=== PATIENT | female | born 1965 | race Caucasian/White ===

== ENCOUNTER 2017-02-22 18:19 | Emergency (ER) | payer SELFPAY ==
[~2017-02-22 18:19] MED LIST: ALBU8.5H6 IH; ALPR0.5T PO; ALPR0.5T6 PO; AMLO5TAB2 PO; ARIP10TA9 PO; AZIT250T PO; CITA20TA5 PO; DIPH1TAB PO; FAMO20TA5 PO; HYDR-971 PO; HYDR28GE TP; IBUP200T43 PO; IPRA4AER IH; LISI-334 PO; LISI40TA PO; MAGN400T3 PO; MIRT15TA3 PO; MOME17SP NS; MULT-246 PO; POTA20TA4 PO; PRAZ1CAP2 PO; PRED-220 PO; SILV20CR14 TP; SODI30SP NS; SULF1TAB24 PO
[2017-02-22 18:22] VITALS: BP 136/74
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
[2017-02-22] MEDS ORDERED: KETOROLAC 30 MG/ML VIAL. IM ONE (19:30)
== END 2017-02-22 19:02 | disposition left against medical advice (07) ==
LOC: ER 18:19
DX: R10.9 Unspecified abdominal pain (principal); R11.2 Nausea with vomiting, unspecified; K43.9 Ventral hernia without obstruction or gangrene; I10 Essential (primary) hypertension; F10.20 Alcohol dependence, uncomplicated; F17.210 Nicotine dependence, cigarettes, uncomplicated; F12.10 Cannabis abuse, uncomplicated; Z90.81 Acquired absence of spleen; Z86.19 Personal history of other infectious and parasitic diseases; Z91.041 Radiographic dye allergy status; Z88.0 Allergy status to penicillin
CPT/HCPCS: 99281; 99284

== ENCOUNTER → 2017-06-16 | Outpatient (CLI) | payer OTHER ==
--- NOTE | 2017-06-17 07:36 | RAD ---
Chest, 2 views, 06/16/2017: History: COPD, chronic cough Comparison is made to a study from 11/10/2016. The heart size and pulmonary vascularity are normal. No pulmonary infiltrates are seen. There is no evidence of pleural fluid. There is evidence of an old shoulder separation on the right. IMPRESSION: No acute cardiopulmonary abnormality is detected.
== END | disposition home or self-care (01) ==
LOC: RAD 16:55
PROVIDERS: ATTEND Nurse Practitioner
DX: J44.9 Chronic obstructive pulmonary disease, unspecified (principal); R05 Cough
CPT/HCPCS: 71020

== ENCOUNTER 2017-08-14 22:56 | Emergency (ER) | payer OTHER ==
[~2017-08-14] VITALS: Ht 157.5 cm; Wt 67.1 kg
[~2017-08-14 22:56] MED LIST changes: -IBUP200T43 PO; +IBUP200T44 PO
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
[2017-08-14] MEDS ORDERED: MVI, ADULT NO.4 WITH VIT K 10 ML, FOLIC ACID 1 MG, THIAMINE 100 MG in IV NORMAL SALINE ... IV ONE ×4 (23:45)
[2017-08-14] MEDS ORDERED: methylPREDNISolone SOD SUCC PF 125 MG/2 ML VIAL. IV ONE (23:45)
[2017-08-14] MEDS ORDERED: IPRATRPIUM/ALBUTEROL 0.5/2.5MG 3 ML NEBU. NEB ONE (23:45)
[2017-08-14] MEDS ORDERED: THIAMINE 200 MG/2 ML VIAL. IV ONE (23:51)
[2017-08-14] MEDS ORDERED: MVI, ADULT NO.4 WITH VIT K 10 ML VIAL IV ONE (23:52)
[2017-08-14] MEDS ORDERED: FOLIC ACID 5 MG/ML SYRINGE for ER IV ONE (23:53)
[2017-08-14 23:58] LABS: BASO # 0.6 x10^3/uL (0.0-0.2); BASO % 5 % (0-3); EOS # 0.3 x10^3/uL (0.0-0.7); EOS % 2 % (0-3); HEMATOCRIT 35.9 % (36.0-47.0); HEMOGLOBIN 12.5 g/dL (12.0-15.5); LYMPH # 4.5 x10^3/uL (1.0-4.8); LYMPH % 32 % (24-48); MEAN CORPUSCULAR HEMOGLOBIN 34 pg (25-35); MEAN CORPUSCULAR HGB CONC 35 g/dL (31-37); MEAN CORPUSCULAR VOLUME 98 fL (79-100); MONO # 0.9 x10^3/uL (0.0-1.1); MONO % 7 % (0-9); NEUT # 7.8 x10^3uL (1.8-7.7); NEUT % 55 % (31-73); PLATELET COUNT 370 x10^3/uL (140-400); RED BLOOD COUNT 3.67 x10^6/uL (3.50-5.40); RED CELL DISTRIBUTION WIDTH 14.7 % (11.5-14.5); WHITE BLOOD COUNT 14.2 x10^3/uL (4.0-11.0)
[2017-08-15] MEDS ORDERED: ONDANSETRON ODT 4 MG TAB.RAPDIS PO ONE
[2017-08-15] MEDS ORDERED: HYDROcodone/APAP 7.5/325MG 1 TAB TABLET PO ONE
[2017-08-15 00:18] LABS: ALBUMIN 3.6 g/dL (3.4-5.0); ALBUMIN/GLOBULIN RATIO 0.8 (1.0-1.7); CALCIUM 8.4 mg/dL (8.5-10.1); CREATININE 1.6 mg/dL (0.6-1.0); GFR 33.7; MAGNESIUM 1.3 mg/dL (1.8-2.4); POTASSIUM 4.2 mmol/L (3.5-5.1); TOTAL BILIRUBIN 0.1 mg/dL (0.2-1.0); TOTAL PROTEIN 8.4 g/dL (6.4-8.2)
[2017-08-15 00:28] LABS: BILIRUBIN,URINE NEG (NEG); CLARITY,URINE HAZY; COLOR,URINE YELLOW; GLUCOSE,URINE NEG (NEG)
[2017-08-15 00:29] LABS: BACTERIA,URINE MANY /HPF (0-FEW); NITRITE,URINE NEG (NEG); RBC,URINE OCC /HPF (0-2); SQUAMOUS EPITHELIAL CELL,UR FEW /LPF; UROBILINOGEN,URINE 0.2 mg/dL (0.2 mg/dL); WBC,URINE >40 /HPF (0-4)
[2017-08-15 00:34] LABS: BARBITURATES NEG (NEG); BENZODIAZEPINES NEG (NEG); CANNABINOIDS NEG (NEG); COCAINE NEG (NEG); METHADONE NEG (NEG); OPIATES NEG (NEG); PHENCYCLIDINE NEG (NEG)
[2017-08-15 00:40] LABS: AMPHETAMINE/METHAMPHETAMINE NEG (NEG)
--- NOTE | 2017-08-15 00:47 | RAD ---
INDICATION: Trauma with head, face and neck pain COMPARISON: None. TECHNIQUE: Axial CT images obtained through the head, face and cervical spine. One or more of the following individualized dose reduction techniques were utilized for this examination: 1. Automated exposure control; 2. Adjustment of the mA and/or kV according to patient size; 3. Use of iterative reconstruction technique. FINDINGS: Head: No midline shift. Suprasellar cistern is not effaced. Scattered foci of low-attenuation within the white matter. No definite acute intracranial hemorrhage. Cervical spine: Mild grade 1 anterolisthesis of C2 on 3 and C4 on 5. Mild retrolisthesis of C5 on 6 and C6 on 7. Degenerative changes with osteophyte formation at vertebral body endplates as well as uncovertebral and facet hypertrophy. No definite cervical spine fracture. There are some cystic changes at the lung apices. Causes such as emphysema in the differential but only partially seen. Facial: There is a displaced left mandibular fracture identified just anterior to the mandibular angle with the fracture extending to the posterior aspect of the patient's posterior most molar. There is air within the adjacent soft tissues. There is angulation of the left zygomatic arch as well. There is some angulation of the nasal bone. Nasal septal deviation to left. IMPRESSION: No definite acute intracranial hemorrhage. No definite cervical spine fracture. There is evidence of facial fractures including a displaced fracture of the left mandible. There is also angulation of the left zygomatic arch and nasal bone. Would correlate with pain in these regions as well since if there is pain and could be from additional fracture sites. Nasal septal deviation to the left. Degenerative changes of cervical spine. Scattered foci of low-attenuation white matter. Nonspecific but can be seen with chronic small vessel ischemic disease. Electronically signed by: Rolando Hyatt MD (08/15/2017 12:44 AM) [facility]
[2017-08-15 01:17] LABS: INFLUENZA A PATIENT NEGATIVE (NEGATIVE); INFLUENZA B PATIENT NEGATIVE (NEGATIVE)
[2017-08-15] MEDS ORDERED: IV NORMAL SALINE 1,000ML 1,000 ML IV SCH (01:42)
[2017-08-15] MEDS ORDERED: CLINDAMYCIN 900MG PREMIX 50 ML IV ONE (01:45)
[2017-08-15 02:05] VITALS: BP 112/75
--- NOTE | 2017-08-15 05:51 | EKG ---
[address] [address] Test Date: 2017-08-14 Test Time: 23:54:30 Pat Name: JASON ESPARZA Department: Room: Gender: F Medical Clerk: SHERWIN : 1965 Requested By: CARLA SRIVASTAVA Order Number: [id number] Reading MD: Kashif Dutton Measurements Intervals [place] Rate: 91 P: -75 [place]: 136 QRS: 18 QRSD: 68 T: 38 QT: 348 QTc: 430 Interpretive Statements SINUS RHYTHM NORMAL ECG Electronically Signed On 08-19-2017 16:26:09 LOAN SERVICING REPRESENTATIVE by Kashif Dutton
--- NOTE | 2017-08-15 07:57 | RAD ---
PROCEDURE: CHEST PA LATERAL CLINICAL INDICATION: Shortness of breath COMPARISON: 06/16/2017 FINDINGS: No pneumothorax identified. Cardiac and mediastinal contours unremarkable. No pulmonary consolidation or acute airspace disease. No acute osseous abnormalities identified. IMPRESSION: No pulmonary consolidation or acute airspace disease.
== END 2017-08-15 02:34 | disposition short-term general hospital (02) ==
LOC: ER 22:56
DX: F10.129 Alcohol abuse with intoxication, unspecified (principal); S02.69XB Fracture of mandible of other specified site, initial encounter for open fracture; S02.40FA Zygomatic fracture, left side, initial encounter for closed fracture; N28.9 Disorder of kidney and ureter, unspecified; E83.42 Hypomagnesemia; K70.9 Alcoholic liver disease, unspecified; N39.0 Urinary tract infection, site not specified; F14.10 Cocaine abuse, uncomplicated; F12.10 Cannabis abuse, uncomplicated; F11.10 Opioid abuse, uncomplicated; F31.9 Bipolar disorder, unspecified; J44.9 Chronic obstructive pulmonary disease, unspecified; I10 Essential (primary) hypertension; Z86.19 Personal history of other infectious and parasitic diseases; Z90.81 Acquired absence of spleen; Z88.0 Allergy status to penicillin; Z91.041 Radiographic dye allergy status; S02.2XXA Fracture of nasal bones, initial encounter for closed fracture; Y08.89XA Assault by other specified means, initial encounter; Y93.41 Activity, dancing; Y99.8 Other external cause status; Y92.098 Other place in other non-institutional residence as the place of occurrence of the external cause
CPT/HCPCS: 36415; 70450; 70486; 71046; 72125; 80053; 80307; 81001; 83735; 83880; 84484; 85025; 87086; 87186; 87804; 93005; 96365; 96375; 99291; G0480; J1956; J2930; J3490; Q0162; G0479; J7030

== ENCOUNTER 2017-10-03 22:02 | Emergency (ER) | payer SELFPAY ==
[~2017-10-03] VITALS: Ht 157.5 cm; Wt 67.1 kg
[2017-10-03] MEDS: IV NORMAL SALINE 1,000ML 1,000 ML IV SCH ×2 (22:15→22:55)
[2017-10-03 23:00] LABS: BASO % 1 % (0-3); EOS % 0 % (0-3); LYMPH # 0.3 x10^3/uL (1.0-4.8); LYMPH % 6 % (24-48); MEAN CORPUSCULAR HEMOGLOBIN 33 pg (25-35); MEAN CORPUSCULAR HGB CONC 32 g/dL (31-37); MEAN CORPUSCULAR VOLUME 103 fL (79-100); MONO # 0.3 x10^3/uL (0.0-1.1); MONO % 6 % (0-9); NEUT # 4.5 x10^3uL (1.8-7.7); NEUT % 88 % (31-73); PLATELET COUNT 160 x10^3/uL (140-400); RED BLOOD COUNT 1.51 x10^6/uL (3.50-5.40); RED CELL DISTRIBUTION WIDTH 14.8 % (11.5-14.5); WHITE BLOOD COUNT 5.1 x10^3/uL (4.0-11.0)
[2017-10-03] MEDS ORDERED: IPRATRPIUM/ALBUTEROL 0.5/2.5MG 3 ML NEBU. NEB ONE (23:00)
[2017-10-03 23:04] LABS: HEMATOCRIT 15.6 % (36.0-47.0)
[2017-10-03 23:09] LABS: ANION GAP 12 (6-14); BLOOD UREA NITROGEN 16 mg/dL (7-20); CARBON DIOXIDE 12 mmol/L (21-32); CHLORIDE 122 mmol/L (98-107); CREATININE 1.1 mg/dL (0.6-1.0); GLUCOSE 74 mg/dL (70-99); SODIUM 146 mmol/L (136-145)
[2017-10-03 23:15] LABS: CALCIUM < 5.0 mg/dL (8.5-10.1)
[2017-10-03 23:16] LABS: POTASSIUM 2.2 mmol/L (3.5-5.1)
--- NOTE | 2017-10-03 23:19 | PHYS DOC ---
General Chief Complaint: PAIN CONTROL Stated Complaint: JAW PAIN Time Seen by MD: 22:05 Source: patient, EMS, old records Exam Limitations: no limitations Problems: History of Present Illness Initial Comments 52-year-old female brought to the ED by EMS complaining of postoperative pain. Patient was seen at this emergency department August 14 diagnosed with an open mandibular fracture and transferred to [facility] for trauma evaluation. Patient states that she underwent surgery on that day and has since developed an infection in the plate used for repair. States that 2 days ago she underwent a revision in which the plate was changed out. She states that she was discharged home yesterday. Patient reports her surgeon at is Dr. Jack Johnson. Patient states that today she's had increased swelling and pain at her left jaw and into her neck. She's been overall tired and states that despite her severe pain "I have no trouble sleeping." ED vitals on arrival: 97.5, 84, 87/30, 20, 87% on room air improved to 95% on 2 L nasal cannula Timing/Duration: other Severity: severe Modifying Factors: worse with movement, improves with rest Associated Symptoms: loss of appetite, malaise, weakness, other Allergies: Coded Allergies: Penicillins (Verified Allergy, Intermediate, Rash, 09/21/16) I S O L A T I O N *CONTACT* (Verified Allergy, Unknown, 11/11/16) +MRSA screen 11-10-16 Past Medical History Medical History: other ( hardly stay awake long enough and I believe her about how much bleeding that she's had no bipolar disorder, COPD, hepatitis C, polysubstance abuse, alcoholism, anxiety, depression, ectopic , hypertension) Surgical History: other (left jaw ORIF and revision, oophorectomy, splenectomy , tonsillectomy, tracheostomy) Social History Smoker: non-smoker Alcohol: heavy Drugs: cocaine, marijuana, other (opiates) Review of Systems Constitutional: denies chills, denies diaphoresis, denies fever, malaise, weakness Respiratory: denies cough, denies shortness of breath, denies wheezing Cardiovascular: denies chest pain, denies palpitations, denies syncope Gastrointestinal: denies abdominal pain, denies nausea, denies vomiting Musculoskeletal: see HPI, denies back pain Psychiatric/Neurological: see HPI, denies numbness, denies paresthesia Hematologic/Lymphatic: see HPI Physical Exam General Appearance: no apparent distress (lethargic and somnolent) Ear, Nose, Throat: hearing grossly normal, other (markedly left facial swelling extending into the neck with trismus) Respiratory: normal breath sounds, no respiratory distress Cardiovascular: normal peripheral pulses, regular rate, rhythm Extremities: non-tender, normal inspection Neurologic/Psychiatric: 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 Critical labs called, hemoglobin 5, potassium 2.2, calcium less than 5. Hemodynamic instability noted, to continue further dilution with normal saline will continue to drop the potassium. Levophed drip initiated with oral and intravenous potassium replacement. Patient is a blood transfusion, also needs urgent transferred to for evaluation by the surgery team to determine if there is no active bleed. Blood bank not initiated here as transfer anticipated to take place prior to preparation of blood products. 2336: I placed multiple calls to , I am repeatedly told that they're busy and cannot take my call at this time. I expressed the urgency of the matter. 0001: Blood pressure improved to 136/79 with Levophed drip at 2 mics. O2 sat is increased to 97% heart rate 85. Some drainage noted coming from the incision and a culture has been obtained. Impressions: Postop day #2 left jaw ORIF revision Severe anemia hemoglobin 5 Severe hypokalemia potassium 2.2 Respiratory Distress Hypovolemia Hypotension Departure Time of Disposition: 00:02 Disposition: 02 XFER SHT-TRM HOSP Condition: IMPROVED JESSICA SRIVASTAVA DO Oct 03, 2017 23:19
[2017-10-03] MEDS ORDERED: NOREPINEPHRINE BITARTRATE 8 MG in IV NORMAL SALINE 250ML 250 ML IV PRN (23:30)
[2017-10-03] MEDS ORDERED: IV NORMAL SALINE 250ML 250 ML ONE (23:32)
[2017-10-03] MEDS ORDERED: NOREPINEPHRINE BITARTRATE 4 MG/4 ML VIAL. IV ONE (23:33)
[2017-10-03] MEDS ORDERED: POTASSIUM CHLORIDE 40 MEQ in IV NORMAL SALINE 1,000ML 1,000 ML IV SCH (23:45)
[2017-10-03] MEDS ORDERED: POTASSIUM CHLORIDE 20 MEQ/15 ML ORAL LIQUID. PO ONE (23:45)
[2017-10-04 00:04] VITALS: BP 103/49
[2017-10-04] MEDS ORDERED: POTASSIUM CL 40MEQ IN 0.9%NACL 1,000 ML IV ONE (00:30)
[2017-10-04 00:39] LABS: BARBITURATES NEG (NEG); BENZODIAZEPINES NEG (NEG); CANNABINOIDS NEG (NEG); COCAINE NEG (NEG); METHADONE NEG (NEG); OPIATES POS (NEG); PHENCYCLIDINE NEG (NEG)
[2017-10-04 00:41] LABS: AMPHETAMINE/METHAMPHETAMINE NEG (NEG)
[2017-10-04] MEDS ORDERED: [UNRECOGNIZED DRUG - OTHER] IV ONE (01:50)
[2017-10-04] MEDS ORDERED: POTASSIUM CL IV ONE (01:50)
== END 2017-10-04 01:18 | disposition short-term general hospital (02) ==
LOC: ER 22:02
DX: G89.18 Other acute postprocedural pain (principal); R68.84 Jaw pain; D64.9 Anemia, unspecified; E87.6 Hypokalemia; E86.1 Hypovolemia; R06.03 Acute respiratory distress; F12.10 Cannabis abuse, uncomplicated; F14.10 Cocaine abuse, uncomplicated; F11.10 Opioid abuse, uncomplicated; J44.9 Chronic obstructive pulmonary disease, unspecified; I10 Essential (primary) hypertension; F41.9 Anxiety disorder, unspecified; F32.9 Major depressive disorder, single episode, unspecified; F10.20 Alcohol dependence, uncomplicated; Z98.890 Other specified postprocedural states; Z91.041 Radiographic dye allergy status; Z88.0 Allergy status to penicillin
CPT/HCPCS: 36415; 80048; 80307; 85025; 87070; 96361; 96365; 96366; 96368; 99285; G0480; J7050; G0479; J7030

== ENCOUNTER 2017-11-07 11:37 | Emergency (ER) | payer SELFPAY ==
[~2017-11-07] VITALS: Ht 157.5 cm; Wt 62.1 kg
--- NOTE | 2017-11-07 11:51 | PHYS DOC ---
Past History Past Medical History: Alcoholism, Anxiety, Depression, Ectopic , Hypertension Past Surgical History: Oophorectomy, Spleenectomy, Tonsillectomy Smoking: Less than 1pk/day, Cigar Alcohol Use: Heavy Drug Use: Marijuana Adult General Chief Complaint Chief Complaint: NEAR SYCOPE HPI HPI Patient is a 52 year old female who presents with nausea vomiting, epigastric pain and near syncopal episode. She states she started drinking again in a pint last her about 3 days. She has been having liquid stools the last 3-4 days and nausea vomiting. She continues to drink alcohol. She does plan of epigastric pain. He doesn't radiate. She was seen at [facility] today because the symptoms and when she stood up after they tried to get blood she had a near syncopal episode. She did hit her head when she had her syncopal episode. She thinks she did consciousness. She does not complain of a headache or neck pain. She states over the last 3-4 day she's been having black stools and approximate 45 a day of them. Review of Systems Review of Systems Constitutional: Denies fever or chills [] Eyes: Denies change in visual acuity, redness, or eye pain [] HENT: Denies nasal congestion or sore throat [] Respiratory: Denies cough or shortness of breath [] Cardiovascular: No additional information not addressed in HPI [] GI: Positive for abdominal pain, nausea, vomiting, and diarrhea, Denies bloody stools : Denies dysuria or hematuria [] Musculoskeletal: Denies back pain or joint pain [] Integument: Denies rash or skin lesions [] Neurologic: Denies headache, focal weakness or sensory changes [] Endocrine: Denies polyuria or polydipsia [] All other systems were reviewed and found to be within normal limits, except as documented in this note. Current Medications Current Medications Current Medications Medications (Trade) Dose Ordered Sig/Cesilia Start Time Stop Time Status Last Admin Dose Admin Ondansetron HCl (Zofran) 4 mg 1X ONCE 11/07/17 12:00 11/07/17 12:01 UNV Sodium Chloride 1,000 ml @ 1,000 mls/hr Q1H 11/07/17 11:47 11/07/17 12:46 UNV Allergies Allergies Allergies Coded Allergies Type Severity Reaction Last Updated Verified Penicillins Allergy Intermediate Rash 2/18/17 Yes I S O L A T I O N *CONTACT* Allergy Unknown 11/11/16 Yes Physical Exam Physical Exam Constitutional: Well developed, well nourished, no acute distress, non-toxic appearance. [] HENT: Normocephalic, atraumatic, bilateral external ears normal, oropharynx moist, no oral exudates, nose normal. [] Eyes: PERRLA, EOMI, conjunctiva normal, no discharge. [] Neck: Normal range of motion, no tenderness, supple, no stridor. [] Cardiovascular:Heart rate regular rhythm, no murmur [] Lungs & Thorax: Bilateral breath sounds clear to auscultation [] Abdomen: Bowel sounds normal, soft, tender to palpation in the epigastric area, no rebound or guarding noted, no masses, no pulsatile masses. [] Skin: Warm, dry, no erythema, no rash. [] Back: No tenderness, no CVA tenderness. [] Extremities: No tenderness, no cyanosis, no clubbing, ROM intact, no edema. [] Neurologic: Alert and oriented X 3, normal motor function, normal sensory function, no focal deficits noted. [] Psychologic: Affect normal, judgement normal, mood normal. [] EKG EKG EKG shows sinus rhythm with rate 71 bpm without any concerning ST elevations or T-wave inversions, normal axis, QTC 465 ms, as interpreted by me. Radiology/Procedures Radiology/Procedures [] Impressions: GI bleed Anemia Syncope Alcohol abuse Course & Med Decision Making Course & Med Decision Making Pertinent Labs and Imaging studies reviewed. (See chart for details) Patient's labs comes back for hemoglobin 6.4. She was typed and screened and a unit of blood has been ordered. She was given IV Protonix and started on a drip. Her Hemoccult is pending at this time. She will require admission to [facility]. She's been accepted by Dr. evangelista. We will request ICU bed with a hemoglobin is 6.4. Patient's in stable condition at this time. She's had one small bowel movement while in the ER. No gross blood observed to was noted to be black. I spent approximately 55 minutes working and engaged directly in the patient care providing critical care evaluation this includes but not limited to time spent engaged in work directly related to the individual patients care. I spent time at the bedside, reviewing test results, discussing the case with staff, documenting the medical record and time spent with EMS discussing specific treatment issues when the patient presented and during his evaluation. This includes any discussion and updates with family members and/or patient. Dragon Disclaimer Dragon Disclaimer This electronic medical record was generated, in whole or in part, using a voice recognition dictation system. Departure Departure: Referrals: PCP,UNKNOWN (PCP) EDELMIRA BLOUNT MD Nov 07, 2017 11:51
[2017-11-07] MEDS ORDERED: IV NORMAL SALINE 1,000ML 1,000 ML IV SCH (12:00)
[2017-11-07] MEDS ORDERED: ONDANSETRON PF 4 MG/2 ML VIAL. IV ONE (12:00)
[2017-11-07 13:43] LABS: BASO % 1 % (0-3); EOS # 0.1 x10^3/uL (0.0-0.7); EOS % 2 % (0-3); LYMPH # 1.9 x10^3/uL (1.0-4.8); LYMPH % 45 % (24-48); MEAN CORPUSCULAR HEMOGLOBIN 31 pg (25-35); MEAN CORPUSCULAR HGB CONC 33 g/dL (31-37); MEAN CORPUSCULAR VOLUME 96 fL (79-100); MONO # 0.1 x10^3/uL (0.0-1.1); MONO % 2 % (0-9); NEUT # 2.2 x10^3uL (1.8-7.7); NEUT % 50 % (31-73); PLATELET COUNT 40 x10^3/uL (140-400); RED BLOOD COUNT 2.03 x10^6/uL (3.50-5.40); RED CELL DISTRIBUTION WIDTH 14.4 % (11.5-14.5); WHITE BLOOD COUNT 4.3 x10^3/uL (4.0-11.0)
[2017-11-07] MEDS ORDERED: IV NORMAL SALINE 1,000ML 1,000 ML IV ONE (13:45)
[2017-11-07 13:47] LABS: PREG TEST PT QUAL NEGATIVE (NEG)
[2017-11-07 13:54] LABS: HEMATOCRIT 19.4 % (36.0-47.0); HEMOGLOBIN 6.4 g/dL (12.0-15.5)
--- NOTE | 2017-11-07 13:55 | EKG ---
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
[2017-11-07 14:04] LABS: ALBUMIN 2.8 g/dL (3.4-5.0); DIRECT BILIRUBIN 0.2 mg/dL (0.0-0.2); MAGNESIUM 1.1 mg/dL (1.8-2.4); TOTAL BILIRUBIN 0.4 mg/dL (0.2-1.0); TOTAL PROTEIN 7.3 g/dL (6.4-8.2)
[2017-11-07 14:26] LABS: HYPOCHROMIA PRESENT; PLT ESTIMATE DECREASED (ADEQUATE); TARGET CELLS PRESENT
[2017-11-07 14:36] LABS: BILIRUBIN,URINE NEG (NEG); CLARITY,URINE CLEAR; COLOR,URINE YELLOW; GLUCOSE,URINE NEG (NEG); UROBILINOGEN,URINE 0.2 mg/dL (0.2 mg/dL)
[2017-11-07 14:37] LABS: AMPHETAMINE/METHAMPHETAMINE NEG (NEG); BACTERIA,URINE FEW /HPF (0-FEW); BARBITURATES NEG (NEG); BENZODIAZEPINES NEG (NEG); CANNABINOIDS NEG (NEG); COCAINE NEG (NEG); METHADONE NEG (NEG); NITRITE,URINE NEG (NEG); OPIATES NEG (NEG); PHENCYCLIDINE NEG (NEG); RBC,URINE 0 /HPF (0-2); SQUAMOUS EPITHELIAL CELL,UR OCC /LPF; WBC,URINE RARE /HPF (0-4)
[2017-11-07] MEDS ORDERED: PANTOPRAZOLE IV 40 MG in IV NORMAL SALINE 100ML 100 ML IV ONE ×2 (15:00→15:15)
[2017-11-07] MEDS ORDERED: PANTOPRAZOLE IV 40 MG VIAL. IVP ONE ×2 (15:00→15:15)
[2017-11-07 16:13] LABS: FECAL OB PT NEGATIVE (NEG)
[2017-11-07 17:24] VITALS: BP 107/64
[2017-11-07 18:45] VITALS: BP 108/55
== END 2017-11-07 18:45 | disposition short-term general hospital (02) ==
LOC: ER 11:37
DX: K92.2 Gastrointestinal hemorrhage, unspecified (principal); D64.9 Anemia, unspecified; R55 Syncope and collapse; F10.20 Alcohol dependence, uncomplicated; F41.9 Anxiety disorder, unspecified; I10 Essential (primary) hypertension; F17.210 Nicotine dependence, cigarettes, uncomplicated; F12.10 Cannabis abuse, uncomplicated; Z88.0 Allergy status to penicillin; Z91.041 Radiographic dye allergy status
CPT/HCPCS: 36415; 36430; 80076; 80307; 81001; 82274; 82553; 83615; 83690; 83735; 83880; 84484; 84703; 85025; 85610; 85730; 86850; 86900; 86901; 86920; 93005; 96361; 96365; 96366; 96375; 99291; C9113; J2405; P9016; G0479; J7030

== ENCOUNTER 2018-04-18 23:09 | Emergency (ER) | payer SELFPAY ==
[~2018-04-18] VITALS: Ht 154.9 cm; Wt 52.0 kg
[~2018-04-18 23:09] MED LIST changes: -AMLO5TAB2 PO; +AMLO5TAB7 PO; -CITA20TA5 PO; +CITA20TA6 PO
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
[2018-04-18] MEDS ORDERED: TIOT18CA IH (23:42)
[2018-04-18] MEDS ORDERED: UMEC1DIS IH (23:42)
[2018-04-19] MEDS ORDERED: IV RINGERS SOLUTION,LACTATED 1,000 ML IV SCH
--- NOTE | 2018-04-19 00:09 | EKG ---
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
[2018-04-19] MEDS ORDERED: cefTRIAXone SODIUM 1 GM VIAL IV ONE (00:25)
[2018-04-19] MEDS ORDERED: IV NORMAL SALINE 50ML 50 ML ONE (00:25)
[2018-04-19] MEDS ORDERED: IV NORMAL SALINE 250ML 250 ML ONE (00:25)
[2018-04-19] MEDS ORDERED: VANCOMYCIN 1 GM VIAL. ONE (00:25)
[2018-04-19] MEDS ORDERED: MORPHINE SULFATE 10 MG/ML SYRINGE. SQ ONE ×2 (00:30→04:00)
[2018-04-19] MEDS ORDERED: VANCOMYCIN 1 GM in IV NORMAL SALINE 250ML 250 ML IV ONE (00:30)
[2018-04-19] MEDS ORDERED: cefTRIAXone IV Push 1 GM VIAL. IVP ONE (00:45)
[2018-04-19 00:56] LABS: BASO # 0.3 x10^3/uL (0.0-0.2); BASO % 2 % (0-3); EOS # 0.2 x10^3/uL (0.0-0.7); EOS % 1 % (0-3); HEMOGLOBIN 11.3 g/dL (12.0-15.5); LYMPH # 6.3 x10^3/uL (1.0-4.8); LYMPH % 44 % (24-48); MEAN CORPUSCULAR HEMOGLOBIN 35 pg (25-35); MEAN CORPUSCULAR HGB CONC 33 g/dL (31-37); MEAN CORPUSCULAR VOLUME 104 fL (79-100); MONO # 0.8 x10^3/uL (0.0-1.1); MONO % 5 % (0-9); NEUT % 48 % (31-73); PLATELET COUNT 249 x10^3/uL (140-400); RED BLOOD COUNT 3.27 x10^6/uL (3.50-5.40); RED CELL DISTRIBUTION WIDTH 13.8 % (11.5-14.5); WHITE BLOOD COUNT 14.5 x10^3/uL (4.0-11.0)
[2018-04-19] MEDS ORDERED: CONTRAST GIVEN MC PRN (01:00)
[2018-04-19 01:06] LABS: BARBITURATES NEG (NEG); BENZODIAZEPINES NEG (NEG); CANNABINOIDS NEG (NEG); COCAINE NEG (NEG); METHADONE NEG (NEG); OPIATES NEG (NEG); PHENCYCLIDINE NEG (NEG)
[2018-04-19 01:08] LABS: AMPHETAMINE/METHAMPHETAMINE NEG (NEG)
[2018-04-19 01:14] LABS: COLOR,URINE YELLOW
[2018-04-19 01:15] LABS: BACTERIA,URINE 0 /HPF (0-FEW); BILIRUBIN,URINE NEG (NEG); CLARITY,URINE CLEAR; GLUCOSE,URINE NEG (NEG); NITRITE,URINE NEG (NEG); RBC,URINE 0 /HPF (0-2); SQUAMOUS EPITHELIAL CELL,UR FEW /LPF; UROBILINOGEN,URINE 0.2 mg/dL (0.2 mg/dL); WBC,URINE 0 /HPF (0-4)
[2018-04-19] MEDS ORDERED: IOHEXOL 300 MG/ML 75 ML VIAL. IV ONE (01:15)
[2018-04-19 01:16] LABS: ALBUMIN 3.3 g/dL (3.4-5.0); CALCIUM 8.4 mg/dL (8.5-10.1); CREATININE 1.5 mg/dL (0.6-1.0); DIRECT BILIRUBIN 0.2 mg/dL (0.0-0.2); GFR 36.3; MAGNESIUM 1.2 mg/dL (1.8-2.4); TOTAL BILIRUBIN 0.4 mg/dL (0.2-1.0)
--- NOTE | 2018-04-19 01:56 | RAD ---
CT HEAD INDICATION: left sided facial abscess with swelling and pain COMPARISON: None Available. TECHNIQUE: 5 mm contiguous axial images were obtained from the skull base to the vertex in both bone and soft tissue algorithm. Exposure: One or more of the following individualized dose reduction techniques were utilized for this examination: 1. Automated exposure control 2. Adjustment of the mA and/or kV according to patient size 3. Use of iterative reconstruction technique FINDINGS: No abnormal attenuation within the brain parenchyma. No evidence of acute intracranial hemorrhage. No extra-axial fluid collections. No mass effect or midline shift. Ventricular size is appropriate. Basal cisterns are patent. No fractures identified.Norton-white differentiation is preserved.Globes and orbits are within normal limits. Paranasal sinuses and mastoid air cells are clear. IMPRESSION: Unremarkable CT examination of the head without contrast, as above. Specifically, no evidence of an acute intracranial abnormality. Electronically signed by: Minh Bond MD (04/19/2018 1:53 AM) [facility]
--- NOTE | 2018-04-19 02:03 | RAD ---
Examination: CT soft tissue neck and maxillofacial bones with IV contrast HISTORY: History of surgery in the left mandible, swelling the left side COMPARISON: None available TECHNIQUE: Axial CT images of the face and the soft tissue neck were performed with IV contrast. Coronal and sagittal reformats are performed Exposure: One or more of the following individualized dose reduction techniques were utilized for this examination: 1. Automated exposure control 2. Adjustment of the mA and/or kV according to patient size 3. Use of iterative reconstruction technique FINDINGS: There is a 3.7 x 1.8 cm peripherally enhancing fluid collection identified inferior and posterior to the left mandible best visualized on series 3 image #29 and posterior and superior to the left submandibular gland , likely abscess. Surgical clips identified about the left mandible. There is a surgical plate identified in the left mandible region. Lucency identified in the left mandible best visualized on series 5 image #15 could be postsurgical or fracture. Plate fixation is identified overlying this region. Mild depressed appearance of the left zygomatic arch probably old fracture There is moderate fat stranding identified about the left mandible, likely cellulitis. The visualized piriform sinuses, vallecula, vocal cord grossly appears unremarkable Mild emphysematous changes identified in the apical lungs. Moderate degenerative changes identified at C5-C6 vertebral levels. Mild atherosclerotic calcifications identified in the left carotid bulb. IMPRESSION: 1. 3.7 x 1.8 cm peripherally enhancing fluid collection identified inferior and posterior to the left mandible best visualized on series 3 image #29 and posterior and superior to the left submandibular gland , likely abscess. Fat stranding identified about the abscess likely cellulitis. 2. Lucency identified in the left mandible best visualized on series 5 image #15 could be postsurgical or fracture. Plate fixation is identified overlying this region. Correlate clinically. Electronically signed by: Minh Bond MD (04/19/2018 2:00 AM) [place] [id number]
[2018-04-19 02:08] LABS: SEDIMENTATION RATE 90 (0-25)
[2018-04-19] MEDS ORDERED: POTASSIUM CHLORIDE 20 MEQ/15 ML ORAL LIQUID. PO ONE (02:15)
[2018-04-19] MEDS ORDERED: MAGNESIUM HYDROXIDE 2,400 MG/30 ML ORAL.SUSP. PO ONE (02:15)
[2018-04-19] MEDS ORDERED: ONDANSETRON PF 4 MG/2 ML VIAL. IV ONE (03:00)
[2018-04-19 03:30] VITALS: BP 190/105
[2018-04-19] MEDS ORDERED: NICOTINE 21MG PATCH. TD ONE (04:00)
--- NOTE | 2018-04-19 10:32 | RAD ---
Chest, 2 views, 04/19/2018: History: Cough Comparison is made to a study from 08/15/2017. The heart size and pulmonary vascularity are normal. Tenting of the left hemidiaphragm laterally is compatible with scarring. No acute infiltrate is seen. There is no evidence of pleural fluid. Multiple nonspecific air-fluid levels are noted in the GI tract in the upper abdomen. These may reflect an ileus. IMPRESSION: 1. Left basilar scarring. 2. No acute cardiopulmonary abnormality is detected. 3. Air-fluid levels in the upper abdomen.
== END 2018-04-19 03:55 | disposition short-term general hospital (02) ==
LOC: ER 23:09
DX: L03.011 Cellulitis of right finger (principal); L03.211 Cellulitis of face; L02.01 Cutaneous abscess of face; M27.2 Inflammatory conditions of jaws; E87.6 Hypokalemia; E83.42 Hypomagnesemia; D72.829 Elevated white blood cell count, unspecified; F10.10 Alcohol abuse, uncomplicated; F17.210 Nicotine dependence, cigarettes, uncomplicated; D53.9 Nutritional anemia, unspecified; R74.8 Abnormal levels of other serum enzymes; R74.0 Nonspecific elevation of levels of transaminase and lactic acid dehydrogenase [LDH]; F41.9 Anxiety disorder, unspecified; F32.9 Major depressive disorder, single episode, unspecified; I10 Essential (primary) hypertension; Z88.0 Allergy status to penicillin; Z91.041 Radiographic dye allergy status; Y90.0 Blood alcohol level of less than 20 mg/100 ml
CPT/HCPCS: 36415; 70450; 70487; 70491; 71046; 80048; 80076; 80307; 81001; 82553; 83690; 83735; 83880; 84443; 84484; 85025; 85610; 85651; 85730; 87040; 93005; 96365; 96366; 96372; 96374; 96375; 99285; G0480; J0696; J2270; J2405; J3370; J7050; J7120; Q9967; G0479

== ENCOUNTER 2018-09-03 16:48 | Emergency (ER) | payer SELFPAY ==
[~2018-09-03] VITALS: Ht 154.9 cm; Wt 54.4 kg
[~2018-09-03 16:48] MED LIST changes: +HYDR-3165 PO; -HYDR-971 PO; +TIOT18CA IH; +UMEC1DIS IH
[2018-09-03] MEDS ORDERED: ONDANSETRON PF 4 MG/2 ML VIAL. IV ONE (17:30)
[2018-09-03] MEDS ORDERED: IV NORMAL SALINE 1,000ML 1,000 ML IV SCH (17:30)
[2018-09-03] MEDS ORDERED: IOHEXOL 300 MG/ML 75 ML VIAL. IV ONE (17:45)
--- NOTE | 2018-09-03 17:48 | PHYS DOC ---
Past History Past Medical History: Alcoholism, Anxiety, Depression, Ectopic , Hypertension, Other (NELLY STEEN MD) Past Surgical History: Oophorectomy, Spleenectomy, Tonsillectomy, Other (NELLY STEEN MD) Smoking: Less than 1pk/day, Cigar Alcohol Use: Heavy Drug Use: Marijuana (NELLY STEEN MD) Adult General Chief Complaint Chief Complaint: FACE PROBLEM HPI HPI Patient is a 53-year-old with history of alcohol abuse and mandibular fracture presented to ER with complaining of lower jaw pain and swelling for 1 week. Patient states she had history of fall and mandibular fracture and 5 times surgery and had 1 episode of mandibular abscess on April 2018. Patient complaining of erythema and pain of her left side of jaw and edema for the last 1 week that gradually getting worse. Patient states she had several episodes of vomiting today and was not able to swallow. Patient states she had subjective fever. Patient has history of alcohol abuse and states she had 1 pint of vodka today. Patient states she did not seek medical attention for the last 1 week. Patient walked to emergency room by herself. (NELLY STEEN MD) Review of Systems Review of Systems Constitutional: Reports fever , chills [] Eyes: Denies change in visual acuity, redness, or eye pain [] HENT: Denies nasal congestion or sore throat [] Respiratory: Denies cough or shortness of breath [] Cardiovascular: No additional information not addressed in HPI [] GI: Denies abdominal pain, bloody stools or diarrhea, reports nausea and vomiting[] : Denies dysuria or hematuria [] Musculoskeletal: Denies back pain or joint pain [] Integument: Denies rash , reports facial edema and erythema Neurologic: Denies headache, focal weakness or sensory changes [] Endocrine: Denies polyuria or polydipsia [] All other systems were reviewed and found to be within normal limits, except as documented in this note. (NELLY STEEN MD) Allergies Allergies Allergies Coded Allergies Type Severity Reaction Last Updated Verified Penicillins Allergy Intermediate Rash 04/19/18 Yes I S O L A T I O N *CONTACT* Allergy Unknown 04/19/18 Yes (NELLY STEEN MD) Physical Exam Physical Exam Constitutional: Well nourished, moderate distress, non-toxic appearance, anxious , smelling of alcohol on breath. [] HENT: Normocephalic, atraumatic, oropharynx dry, no oral exudates, nose normal. Left facial edema and erythema with abscess and central fluctuation in angle of left side of mandible with tenderness, extending edema and tenderness to oral mucosa of right cheek, mild trismus Eyes: PERRLA, EOMI, conjunctiva normal, no discharge. [] Neck: Normal range of motion, no tenderness, supple, no stridor. [] Cardiovascular:Heart rate regular rhythm, no murmur [] Lungs & Thorax: Bilateral breath sounds clear to auscultation [] Abdomen: Bowel sounds normal, soft, no tenderness, no masses, no pulsatile masses. [] Skin: Warm, dry, no erythema, no rash. [] Back: No tenderness, no CVA tenderness. [] Extremities: No tenderness, no cyanosis, no clubbing, ROM intact, no edema. [] Neurologic: Alert and oriented X 3, normal motor function, normal sensory function, no focal deficits noted. [] Psychologic: Affect anxious, judgement normal, mood normal. [] (NELLY STEEN MD) EKG EKG [] (NELLY STEEN MD) Radiology/Procedures Radiology/Procedures [] (NELLY STEEN MD) Impressions: PROCEDURE: CT SOFT TISSUE NECK W/CONTRAST PQRS Compliance statement: One or more of the following individualized dose reduction techniques were utilized for this examination: 1. Automated exposure control. 2. Adjustment of the mA and/or kV according to patient size. 3. Use of iterative reconstruction technique. Indication:Left jaw infection and abscess TECHNIQUE: CT of the neck soft tissue with IV contrast with multiplanar reformats. COMPARISON: 04/19/2018 FINDINGS: Visualized orbits and sections through the brain are within normal limits. The nasopharynx, oropharynx and hypopharynx within normal limits. The right submandibular gland, bilateral parotid glands and thyroid are within normal limits. Fluid collection is seen in the left submandibular gland fossa measuring 2.0 x 1.5 x 2.7 cm, previously 3.1 x 1.5 x 2.4 cm with peripheral enhancement. Mildly enlarged surrounding lymph nodes are seen, the largest measuring 1.0 x 0.8 cm. The major neck vasculature is patent. Emphysematous changes in the visualized lung apices. Status post ORIF of left mandibular fracture. The visualized paranasal sinuses and mastoid air cells are clear. No suspicious bony lesion. IMPRESSION: Left submandibular gland fossa abscess slightly improved when compared to previous exam from 04/19/2018. Surrounding reactive lymphadenopathy. Centrally necrotic squamous cell carcinoma not ruled out. Electronically signed by: Hung Fung DO (09/03/2018 7:49 PM) [facility] DICTATED AND SIGNED BY: HUNG FUNG DO (BOLA MACKAY Jr., DO) Course & Med Decision Making Course & Med Decision Making Pertinent Labs and Imaging studies are pending. Evaluation of patient in ER showed 53-year-old female patient with history of alcohol abuse and left mandible frequents fracture fractures and frequent fracture and several surgeries and history of abscess presented to ER with complaining of left jaw pain and edema. Patient had left ventricular abscess. Labs and CT of face is pending. Patient care transferred to Dr. Mackay at 1800. (NELLY STEEN MD) Course & Med Decision Making The CT scan has been reviewed and findings of abscess has been noted. transfer Center was contacted and patient [facility] is accepting in transfer. (BOLA MACKAY Jr., DO) Dragon Disclaimer Dragon Disclaimer This electronic medical record was generated, in whole or in part, using a voice recognition dictation system. (NELLY STEEN MD) Departure Departure: Impression: Primary Impression: Abscess of mandible Additional Impressions: Alcohol abuse Submandibular abscess Disposition: 02 XFER [facility]M HOSP Condition: GOOD Referrals: CONRAD SALAZAR DO (PCP) Problem Qualifiers NELLY STEEN MD Sep 03, 2018 17:47 BOLA MACKAY Jr., DO Sep 03, 2018 19:56
[2018-09-03] MEDS ORDERED: CLINDAMYCIN 600MG PREMIX 50 ML IV ONE (18:00)
[2018-09-03 18:24] LABS: BASO # 0.3 x10^3/uL (0.0-0.2); BASO % 2 % (0-3); EOS # 0.2 x10^3/uL (0.0-0.7); EOS % 2 % (0-3); HEMATOCRIT 36.8 % (36.0-47.0); HEMOGLOBIN 12.2 g/dL (12.0-15.5); LYMPH # 2.6 x10^3/uL (1.0-4.8); LYMPH % 22 % (24-48); MEAN CORPUSCULAR HEMOGLOBIN 34 pg (25-35); MEAN CORPUSCULAR HGB CONC 33 g/dL (31-37); MEAN CORPUSCULAR VOLUME 101 fL (79-100); MONO % 8 % (0-9); NEUT % 66 % (31-73); PLATELET COUNT 141 x10^3/uL (140-400); RED BLOOD COUNT 3.64 x10^6/uL (3.50-5.40); RED CELL DISTRIBUTION WIDTH 13.2 % (11.5-14.5)
[2018-09-03 19:02] LABS: ALBUMIN 2.9 g/dL (3.4-5.0); ALBUMIN/GLOBULIN RATIO 0.5 (1.0-1.7); CALCIUM 8.3 mg/dL (8.5-10.1); CREATININE 1.1 mg/dL (0.6-1.0); GFR 51.8; TOTAL BILIRUBIN 1.3 mg/dL (0.2-1.0); TOTAL PROTEIN 8.8 g/dL (6.4-8.2)
[2018-09-03 19:09] LABS: POTASSIUM 2.8 mmol/L (3.5-5.1)
[2018-09-03] MEDS ORDERED: POTASSIUM CL 20MEQ D5-0.9%NACL 1,000 ML IV ONE (19:15)
--- NOTE | 2018-09-03 19:53 | RAD ---
PQRS Compliance statement: One or more of the following individualized dose reduction techniques were utilized for this examination: 1. Automated exposure control. 2. Adjustment of the mA and/or kV according to patient size. 3. Use of iterative reconstruction technique. Indication:Left jaw infection and abscess TECHNIQUE: CT of the neck soft tissue with IV contrast with multiplanar reformats. COMPARISON: 04/19/2018 FINDINGS: Visualized orbits and sections through the brain are within normal limits. The nasopharynx, oropharynx and hypopharynx within normal limits. The right submandibular gland, bilateral parotid glands and thyroid are within normal limits. Fluid collection is seen in the left submandibular gland fossa measuring 2.0 x 1.5 x 2.7 cm, previously 3.1 x 1.5 x 2.4 cm with peripheral enhancement. Mildly enlarged surrounding lymph nodes are seen, the largest measuring 1.0 x 0.8 cm. The major neck vasculature is patent. Emphysematous changes in the visualized lung apices. Status post ORIF of left mandibular fracture. The visualized paranasal sinuses and mastoid air cells are clear. No suspicious bony lesion. IMPRESSION: Left submandibular gland fossa abscess slightly improved when compared to previous exam from 04/19/2018. Surrounding reactive lymphadenopathy. Centrally necrotic squamous cell carcinoma not ruled out. Electronically signed by: Hung Fung DO (09/03/2018 7:49 PM) [facility]
[2018-09-03] MEDS ORDERED: MORPHINE SULFATE 4 MG/ML DISP.SYRIN. IV ONE ×2 (20:15→21:30)
[2018-09-03 22:04] VITALS: BP 150/73
== END 2018-09-03 22:04 | disposition short-term general hospital (02) ==
LOC: ER 16:48
DX: M27.2 Inflammatory conditions of jaws (principal); K12.2 Cellulitis and abscess of mouth; R11.2 Nausea with vomiting, unspecified; F10.10 Alcohol abuse, uncomplicated; F41.9 Anxiety disorder, unspecified; F32.9 Major depressive disorder, single episode, unspecified; F17.210 Nicotine dependence, cigarettes, uncomplicated; Z88.0 Allergy status to penicillin; Z91.041 Radiographic dye allergy status; Y90.8 Blood alcohol level of 240 mg/100 ml or more
CPT/HCPCS: 36415; 70491; 80053; 83605; 85025; 85610; 85730; 87040; 96361; 96365; 96366; 96368; 96375; 96376; 99285; G0480; J2270; J2405; J3010; J3490; Q9967; J7030

== ENCOUNTER 2019-01-10 12:00 | Emergency (ER) | payer SELFPAY ==
[~2019-01-10] VITALS: Ht 154.9 cm; Wt 52.0 kg
[~2019-01-10 12:00] MED LIST changes: +AMLO5TAB10 PO; -AMLO5TAB7 PO
[2019-01-10] MEDS ORDERED: IPRATRPIUM/ALBUTEROL 0.5/2.5MG 3 ML NEBU. ONE (12:08)
[2019-01-10] MEDS ORDERED: DEXAMETHASONE SOD PHOS 10 MG/ML VIAL IV ONE (12:15)
[2019-01-10] MEDS ORDERED: IV NORMAL SALINE 1,000ML 1,000 ML IV ONE (12:15)
[2019-01-10] MEDS ORDERED: IPRATRPIUM/ALBUTEROL 0.5/2.5MG 3 ML NEBU. NEB ONE (12:15)
[2019-01-10] MEDS ORDERED: ASPIRIN 325 MG TABLET PO ONE (12:15)
--- NOTE | 2019-01-10 12:28 | PHYS DOC ---
Past History Past Medical History: Abscess, Alcoholism, Asthma, COPD, Depression Past Medical History Limited due to ETOH intoxication Past Surgical History: Oophorectomy, Spleenectomy, Tonsillectomy, Other Past Surgical History Limited due to ETOH intoxication Smoking: Less than 1pk/day, Cigar Alcohol Use: Heavy Drug Use: Marijuana Social History Limited due to ETOH intoxication Adult General Chief Complaint Chief Complaint: CHEST PAIN HPI HPI 53 y/o female presents with several weeks of shortness of breath with productive cough. Patient reports she doesn't feel well. Reports she has been self medicating with vodka. Reports she drank "enough" prior to coming into ED today. History of present illness limited due to ETOH intoxication. Review of Systems Review of Systems Constitutional: Denies fever or chills Eyes: Denies redness or eye pain HENT: Denies nasal congestion Respiratory: Reports productive cough and shortness of breath Cardiovascular: Reports chest pain/discomfort Review of symptoms limited due to ETOH intoxication. Current Medications Current Medications Current Medications Medications (Trade) Dose Ordered Sig/Cesilia Start Time Stop Time Status Last Admin Dose Admin Albuterol/ Ipratropium (Duoneb) 3 ml 1X ONCE 01/10/19 12:15 01/10/19 12:16 DC 01/10/19 12:12 3 ML Aspirin (Amy Aspirin) 325 mg 1X ONCE 01/10/19 12:15 01/10/19 12:16 DC Dexamethasone Sodium Phosphate (Decadron) 10 mg 1X ONCE 01/10/19 12:15 01/10/19 12:16 DC Sodium Chloride 1,000 ml @ 1,000 mls/hr 1X ONCE 01/10/19 12:15 01/10/19 13:14 Allergies Allergies Allergies Coded Allergies Type Severity Reaction Last Updated Verified Penicillins Allergy Intermediate Rash 04/19/18 Yes I S O L A T I O N *CONTACT* Allergy Unknown 04/19/18 Yes Physical Exam Physical Exam Constitutional: Well developed, well nourished, no acute distress, non-toxic appearance, intoxicated HENT: Normocephalic, atraumatic, oropharynx moist Eyes: Conjunctiva injected, no discharge, horizontal nystagmus noted Neck: Normal range of motion, no tenderness, supple Cardiovascular: Heart rate normal, regular rhythm Lungs & Thorax: Bilateral breath sounds clear to auscultation, no wheezing Abdomen: Soft, no tenderness Skin: Warm, dry, no erythema, no rash Extremities: No tenderness, ROM intact, no edema Neurologic: Alert and oriented X 3, no focal deficits noted Psychologic: Affect anxious, judgement poor Current Patient Data Vital Signs Vital Signs Date Time Temp Pulse Resp B/P (MAP) Pulse Ox O2 Delivery O2 Flow Rate FiO2 01/10/19 12:07 98.6 97 20 98 Room Air EKG EKG @ 1220 EKG at 86bpm, NO ST elevation Radiology/Procedures Radiology/Procedures PROCEDURE: CHEST PA & LATERAL PA and lateral chest x-rays HISTORY: Cough and shortness of breath. COMPARISON: Chest x-rays April 19, 2018. FINDINGS: Heart size is normal. Mediastinal silhouette is normal. No pneumothorax. No pleural effusions. Mild pleural-based thickening along the left lateral diaphragm is stable to the prior study. No pulmonary opacities. Mild thoracic scoliosis. IMPRESSION: No acute process. Stable exam. Electronically signed by: Rodrigue Solorzano MD (01/10/2019 12:43 PM) [facility] Course & Med Decision Making Course & Med Decision Making Pertinent Labs and Imaging studies reviewed. (See chart for details) Patient presents with history of productive cough with SOA. Patient noted to be acutely intoxicated. Banana bag provided. EKG stable. Labs obtained and posted to chart. LFTs elevated likely due to ETOH abuse. Lipase WNL. ETOH 481. Renal insufficiency noted likely due to dehydration. IVF hydration given in addition to banana bag. CXR without acute process. UA without signs of infection. UDS positive for cocaine. Symptoms likely bronchitis. Patient stable for discharge with outpatient follow-up with PCP. Drug and ETOH rehab literature provided. Discussed findings and plan with patient, who acknowledges understanding and agreement. Dragon Disclaimer Dragon Disclaimer This electronic medical record was generated, in whole or in part, using a voice recognition dictation system. Departure Departure: Impression: Primary Impression: Bronchitis Additional Impressions: Alcohol abuse Acute renal insufficiency Disposition: 01 HOME, SELF-CARE Condition: STABLE Referrals: CONRAD SALAZAR DO (PCP) Patient Instructions: Acute Bronchitis, Womy-yi-Elab, Alcohol, FAQs, Dehydration, Adult, Bewb-lu-Ezdj, How Much is Too Much Alcohol, Mgln-vy-Erco Scripts Famotidine (PEPCID) 20 Mg Tablet 1 TAB PO BID for gastritis, #20 TAB Prov: DENIZ RAMIREZ DO 01/10/19 Albuterol Sulfate (PROAIR HFA INHALER) 8.5 Gm Hfa.aer.ad 1 PUFF INH PRN Q6HRS PRN for WHEEZING, #1 INHALER 0 Refills Prov: DENIZ RAMIREZ DO 01/10/19 Azithromycin (AZITHROMYCIN TABLET) 250 Mg Tablet 1 PKG PO UD for bronchitis, #6 TAB Take 2 tablets today and then one tablet every day thereafter for the next 4 days Prov: DENIZ RAMIREZ DO 01/10/19 Prednisone (PREDNISONE) 20 Mg Tablet 2 TAB PO DAILY for Bronchitis, #8 TAB Start this medication tomorrow, Friday01/11/19 Prov: DENIZ RAMIREZ DO 01/10/19 Problem Qualifiers DENIZ RAMIREZ DO Jan 10, 2019 12:28
--- NOTE | 2019-01-10 12:46 | RAD ---
PA and lateral chest x-rays HISTORY: Cough and shortness of breath. COMPARISON: Chest x-rays April 19, 2018. FINDINGS: Heart size is normal. Mediastinal silhouette is normal. No pneumothorax. No pleural effusions. Mild pleural-based thickening along the left lateral diaphragm is stable to the prior study. No pulmonary opacities. Mild thoracic scoliosis. IMPRESSION: No acute process. Stable exam. Electronically signed by: Rodrigue Solorzano MD (01/10/2019 12:43 PM) [facility]
[2019-01-10] MEDS ORDERED: PRED20TA PO (12:56)
[2019-01-10] MEDS ORDERED: AZIT250T6 PO (12:56)
[2019-01-10] MEDS ORDERED: ALBU2.5V8 INH (12:56)
[2019-01-10] MEDS ORDERED: MVI, ADULT NO.4 WITH VIT K 10 ML, FOLIC ACID SYRINGE for ER 1 MG, THIAMINE INJ 100 MG i... IV ONE ×4 (13:00)
[2019-01-10 13:26] LABS: ALBUMIN 3.4 g/dL (3.4-5.0); ALBUMIN/GLOBULIN RATIO 0.5 (1.0-1.7); CALCIUM 8.7 mg/dL (8.5-10.1); CREATININE 1.6 mg/dL (0.6-1.0); GFR 33.6; POTASSIUM 3.6 mmol/L (3.5-5.1); TOTAL BILIRUBIN 0.6 mg/dL (0.2-1.0); TOTAL PROTEIN 10.1 g/dL (6.4-8.2)
--- NOTE | 2019-01-10 13:38 | EKG ---
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
[2019-01-10 13:49] LABS: BASO # 0.1 x10^3/uL (0.0-0.2); BASO % 2 % (0-3); EOS % 1 % (0-3); HEMATOCRIT 31.9 % (36.0-47.0); HEMOGLOBIN 10.6 g/dL (12.0-15.5); LYMPH # 5.1 x10^3/uL (1.0-4.8); LYMPH % 59 % (24-48); MEAN CORPUSCULAR HEMOGLOBIN 34 pg (25-35); MEAN CORPUSCULAR HGB CONC 33 g/dL (31-37); MEAN CORPUSCULAR VOLUME 101 fL (79-100); MONO # 0.6 x10^3/uL (0.0-1.1); MONO % 7 % (0-9); NEUT # 2.7 x10^3uL (1.8-7.7); NEUT % 32 % (31-73); PLATELET COUNT 115 x10^3/uL (140-400); RED BLOOD COUNT 3.15 x10^6/uL (3.50-5.40); RED CELL DISTRIBUTION WIDTH 15.1 % (11.5-14.5); WHITE BLOOD COUNT 8.6 x10^3/uL (4.0-11.0)
[2019-01-10] MEDS ORDERED: FAMOTIDINE 20 MG/2 ML VIAL IVP ONE (14:00)
[2019-01-10 14:28] LABS: % ATYL 3 % (0-0); % BANDS 1 % (0-9); % BASOS 3 % (0-3); % LYMPHS 52 % (24-48); % MONOS 2 % (0-10); % SEGS 39 % (35-66); PLT ESTIMATE DECREASED (ADEQUATE); SMUDGE CELLS PRESENT
[2019-01-10 14:29] LABS: ANISOCYTOSIS SLIGHT
[2019-01-10 14:33] LABS: POLYCHROMASIA SLIGHT
[2019-01-10 14:37] LABS: AMPHETAMINE/METHAMPHETAMINE NEG (NEG); BARBITURATES NEG (NEG); BENZODIAZEPINES NEG (NEG); CANNABINOIDS NEG (NEG); COCAINE POS (NEG); METHADONE NEG (NEG); OPIATES NEG (NEG); PHENCYCLIDINE NEG (NEG)
[2019-01-10 14:51] LABS: BACTERIA,URINE FEW /HPF (0-FEW); BILIRUBIN,URINE NEG (NEG); CLARITY,URINE CLEAR; COLOR,URINE STRAW; GLUCOSE,URINE NEG (NEG); NITRITE,URINE NEG (NEG); RBC,URINE OCC /HPF (0-2); SQUAMOUS EPITHELIAL CELL,UR OCC /LPF; UROBILINOGEN,URINE 0.2 mg/dL (0.2 mg/dL)
[2019-01-10] MEDS ORDERED: FAMO-63 PO (14:55)
[2019-01-10 15:07] VITALS: BP 120/65
== END 2019-01-10 15:07 | disposition home or self-care (01) ==
LOC: ER 12:00
DX: J44.9 Chronic obstructive pulmonary disease, unspecified (principal); N28.9 Disorder of kidney and ureter, unspecified; F10.20 Alcohol dependence, uncomplicated; F32.9 Major depressive disorder, single episode, unspecified; F17.210 Nicotine dependence, cigarettes, uncomplicated; Z88.0 Allergy status to penicillin; Z91.041 Radiographic dye allergy status; Y90.8 Blood alcohol level of 240 mg/100 ml or more
CPT/HCPCS: 36415; 71046; 80053; 80307; 81001; 82553; 83605; 83690; 83880; 84484; 85007; 85025; 87040; 93005; 94640; 96365; 96366; 96375; 99285; G0480; J1100; J2060; J3490; J7620; J7030

== ENCOUNTER 2019-04-17 16:03 | Inpatient (IN) | payer SELFPAY ==
[~2019-04-17] VITALS: Ht 154.9 cm; Wt 51.4 kg
[~2019-04-17 16:03] MED LIST changes: +ALBU2.5V8 INH; +AZIT250T6 PO; +FAMO-63 PO; +PRED20TA PO
--- NOTE | 2019-04-17 16:27 | PHYS DOC ---
Past History Past Medical History: Abscess, Alcoholism, Asthma, COPD, Depression (VERNON CABAN DO) Past Surgical History: Oophorectomy, Spleenectomy, Tonsillectomy, Other Additional Past Surgical Histo: left jawORIF (VERNON CABAN DO) Smoking: Less than 1pk/day, Cigar Alcohol Use: Heavy Drug Use: Marijuana (VERNON CABAN DO) Adult General Chief Complaint Chief Complaint: POST-OP PROBLEM HPI HPI Patient is a 43-year-old female presents with purulent drainage from her left neck for the past 5 days. Patient has a previous history of an ORIF of her left jaw approximately year ago. This was performed at . She has had previous abscess of the jaw. She reports a fever of 101 on . She has not seen anyone for this. Denies difficulty swallowing. She reports the swelling has improved since the drainage has been going on.[] (VERNON CABAN DO) Review of Systems Review of Systems Constitutional: See history of present illness[] Eyes: Denies change in visual acuity, redness, or eye pain [] HENT: Denies nasal congestion or sore throat [] Respiratory: Denies cough or shortness of breath [] Cardiovascular: No additional information not addressed in HPI [] GI: Denies abdominal pain, nausea, vomiting, bloody stools or diarrhea [] : Denies dysuria or hematuria [] Musculoskeletal: Denies back pain or joint pain [] Integument: Denies rash or skin lesions, see history of present illness [] Neurologic: Denies headache, focal weakness or sensory changes [] Endocrine: Denies polyuria or polydipsia [] All other systems were reviewed and found to be within normal limits, except as documented in this note. (VERNON CABAN DO) Allergies Allergies Allergies Coded Allergies Type Severity Reaction Last Updated Verified Penicillins Allergy Intermediate Rash 04/19/18 Yes I S O L A T I O N *CONTACT* Allergy Unknown 04/19/18 Yes (VERNON CABAN DO) Physical Exam Physical Exam Constitutional: Well developed, well nourished, no acute distress, non-toxic appearance. [] HENT: Normocephalic, swelling of left face, bilateral external ears normal, oropharynx moist, no oral exudates, nose normal. [] Eyes: PERRLA, EOMI, conjunctiva normal, no discharge. [] Neck: Normal range of motion, no tenderness, supple, no stridor. There what appears to be a fistula track in the left neck. No erythema. Purulent drainage from this fistula present [] Cardiovascular:Heart rate regular rhythm, no murmur [] Lungs & Thorax: Bilateral breath sounds clear to auscultation [] Abdomen: Bowel sounds normal, soft, no tenderness, no masses, no pulsatile masses. [] Skin: Warm, dry, no erythema, no rash. [] Back: No tenderness, no CVA tenderness. [] Extremities: No tenderness, no cyanosis, no clubbing, ROM intact, no edema. [] Neurologic: Alert and oriented X 3, normal motor function, normal sensory function, no focal deficits noted. [] Psychologic: Affect normal, judgement normal, mood normal. [] (VERNON CABAN DO) EKG EKG [] (VERNON CABAN DO) Radiology/Procedures Radiology/Procedures [] (VERNON CABAN DO) Impressions: PROCEDURE: CT SOFT TISSUE NECK W/CONTRAST Examination: CT SOFT TISSUE NECK W/CONTRAST History: Purulent drainage from the left neck Comparison/Correlation: 09/03/2018 CT neck with contrast Findings: Axial images of the neck were obtained following IV contrast. Sagittal and coronal reformatted images were provided. Imaging was performed from the mid orbital level to the lung apices. Parotid and right sublingual glands are unremarkable. Absence of the left sublingual gland noted. Pharynx is symmetric and unremarkable. Epiglottis is normal. Wound is noted at the level inferior to the left parotid gland with associated sinus tract. The sinus tract along the inferomedial aspect of the left parotid gland. Along the lateral aspect of the left digastric muscle, there is an intermediate density heterogeneous structure measuring up to 3.2 cm anteroposterior by 1.8 cm transverse by 3.3 cm longitudinal and this is in the region of surgical clips adjacent to the left mandible. Correlate with surgical history. No rim-enhancing collection identified however. Plate and screws are noted involving the lateral aspect of the left mandible extending from the level of the neck to the mandibular midline. Nonunion fracture deformity at the level of the angle of mandible noted. Pharynx is symmetric. True and false cords are unremarkable. Epiglottis is normal. No enlarged lymph nodes identified. Thyroid gland is unremarkable. Emphysematous involvement of the lung apices. Moderate to severe C5-6 interspace narrowing. Subtle reversal cervical lordosis noted. Neural foraminal bony encroachment is marked at C5-6 bilaterally. Impression: Left-sided wound inferior to the level of the left parotid gland is present with associated sinus tract which extends along the inferior, deep margin of the left parotid gland. No rim-enhancing abscess collection identified. There is intermediate density structure inferior to the left angle of the mandible with surrounding surgical clips. Correlate with surgical history. PQRS Compliance Statement: One or more of the following individualized dose reduction techniques were utilized for this examination: 1. Automated exposure control 2. Adjustment of the mA and/or kV according to patient size 3. Use of iterative reconstruction technique Electronically signed by: Pawan Jarrell MD (04/17/2019 6:53 PM) [facility] DICTATED AND SIGNED BY: PAWAN JARRELL MD DATE: 04/17/19 319 CC: BOLA BURGESS Jr., DO; VERNON CABAN DO; CONRAD SALAZAR DO ~ (BOLA BURGESS Jr., DO) Course & Med Decision Making Course & Med Decision Making Pertinent Labs and Imaging studies reviewed. (See chart for details) ED course: Patient arrived, was placed in bed, and tolerated exam well. At the time of this dictation imaging and laboratory results are pending. Patient was given IV antibiotics. Patient care was endorsed to the nighttime physician at 1800 with these results pending.[] (VERNON CABAN DO) Course & Med Decision Making Patient care was accepted from prior ER physician at 6:00 PM and lab work and CT were pending at that time. Patient's workup is returned with no findings for abscess fluid collection in the cheek. I have discussed the case with Dr. Ugalde and he agrees that patient may be cared for at this facility. We'll plan on continuing antibiotics as prescribed by Dr. Caban. (BOLA BURGESS Jr., DO) Dragon Disclaimer Dragon Disclaimer This electronic medical record was generated, in whole or in part, using a voice recognition dictation system. (VERNON CABAN DO) Departure Departure: Impression: Primary Impression: Cellulitis of external cheek, left Additional Impression: Abscess of external cheek, left Disposition: 09 ADMITTED INPATIENT Admitting Physician: Frederic Ugalde (BOLA BURGESS Jr. DO) Condition: STABLE Referrals: CONRAD SALAZAR DO (PCP) Problem Qualifiers VERNON CABAN DO Apr 17, 2019 16:27 BOLA BURGESS Jr., DO Apr 17, 2019 19:07
[2019-04-17] MEDS ORDERED: CLINDAMYCIN 600MG PREMIX 50 ML IV ONE (16:30)
[2019-04-17] MEDS ORDERED: VANCOMYCIN PER PHARMACY MC ONE (16:30)
[2019-04-17 17:02] LABS: BASO # 0.1 x10^3/uL (0.0-0.2); BASO % 1 % (0-3); EOS # 0.1 x10^3/uL (0.0-0.7); EOS % 1 % (0-3); HEMATOCRIT 26.7 % (36.0-47.0); HEMOGLOBIN 8.4 g/dL (12.0-15.5); LYMPH # 5.4 x10^3/uL (1.0-4.8); LYMPH % 39 % (24-48); MEAN CORPUSCULAR HEMOGLOBIN 31 pg (25-35); MEAN CORPUSCULAR HGB CONC 31 g/dL (31-37); MEAN CORPUSCULAR VOLUME 100 fL (79-100); MONO # 1.4 x10^3/uL (0.0-1.1); MONO % 10 % (0-9); NEUT % 50 % (31-73); PLATELET COUNT 223 x10^3/uL (140-400); RED BLOOD COUNT 2.66 x10^6/uL (3.50-5.40); RED CELL DISTRIBUTION WIDTH 23.9 % (11.5-14.5)
[2019-04-17] MEDS ORDERED: IBUPROFEN 400 MG TABLET. PO ONE ×2 (17:03→17:15)
[2019-04-17 17:13] LABS: ALBUMIN 2.8 g/dL (3.4-5.0); ALBUMIN/GLOBULIN RATIO 0.5 (1.0-1.7); C REACTIVE PROTEIN 14.9 mg/L (0-3.3); CALCIUM 8.3 mg/dL (8.5-10.1); CREATININE 1.4 mg/dL (0.6-1.0); GFR 39.2; POTASSIUM 3.6 mmol/L (3.5-5.1); TOTAL BILIRUBIN 0.5 mg/dL (0.2-1.0); TOTAL PROTEIN 8.8 g/dL (6.4-8.2)
[2019-04-17] MEDS ORDERED: VANCOMYCIN 1.25 GM in IV NORMAL SALINE 250ML 250 ML IV ONE (17:30)
[2019-04-17] MEDS ORDERED: CONTRAST GIVEN MC PRN (17:45)
[2019-04-17] MEDS ORDERED: IOHEXOL 300 MG/ML 75 ML VIAL. IV ONE (18:00)
[2019-04-17 18:10] LABS: SEDIMENTATION RATE 110 (0-25)
--- NOTE | 2019-04-17 18:56 | RAD ---
Examination: CT SOFT TISSUE NECK W/CONTRAST History: Purulent drainage from the left neck Comparison/Correlation: 09/03/2018 CT neck with contrast Findings: Axial images of the neck were obtained following IV contrast. Sagittal and coronal reformatted images were provided. Imaging was performed from the mid orbital level to the lung apices. Parotid and right sublingual glands are unremarkable. Absence of the left sublingual gland noted. Pharynx is symmetric and unremarkable. Epiglottis is normal. Wound is noted at the level inferior to the left parotid gland with associated sinus tract. The sinus tract along the inferomedial aspect of the left parotid gland. Along the lateral aspect of the left digastric muscle, there is an intermediate density heterogeneous structure measuring up to 3.2 cm anteroposterior by 1.8 cm transverse by 3.3 cm longitudinal and this is in the region of surgical clips adjacent to the left mandible. Correlate with surgical history. No rim-enhancing collection identified however. Plate and screws are noted involving the lateral aspect of the left mandible extending from the level of the neck to the mandibular midline. Nonunion fracture deformity at the level of the angle of mandible noted. Pharynx is symmetric. True and false cords are unremarkable. Epiglottis is normal. No enlarged lymph nodes identified. Thyroid gland is unremarkable. Emphysematous involvement of the lung apices. Moderate to severe C5-6 interspace narrowing. Subtle reversal cervical lordosis noted. Neural foraminal bony encroachment is marked at C5-6 bilaterally. Impression: Left-sided wound inferior to the level of the left parotid gland is present with associated sinus tract which extends along the inferior, deep margin of the left parotid gland. No rim-enhancing abscess collection identified. There is intermediate density structure inferior to the left angle of the mandible with surrounding surgical clips. Correlate with surgical history. PQRS Compliance Statement: One or more of the following individualized dose reduction techniques were utilized for this examination: 1. Automated exposure control 2. Adjustment of the mA and/or kV according to patient size 3. Use of iterative reconstruction technique Electronically signed by: Pawan Delgado MD (04/17/2019 6:53 PM) [facility]
[2019-04-17 19:02] LABS: % BASOS 1 % (0-3); % EOS 2 % (0-5); % MONOS 7 % (0-10)
[2019-04-17 19:03] LABS: % LYMPHS 35 % (24-48); % SEGS 55 % (35-66)
[2019-04-17 19:04] LABS: ANISOCYTOSIS MOD; PLT ESTIMATE ADEQUATE (ADEQUATE); POLYCHROMASIA SLIGHT
[2019-04-17] MEDS ORDERED: ACETAMINOPHEN 325 MG TABLET PO PRN (20:15)
[2019-04-17] MEDS ORDERED: ONDANSETRON PF 4 MG/2 ML VIAL. IV PRN (20:15)
[2019-04-17 22:10] VITALS: BP 174/95
[2019-04-17] MEDS ORDERED: FLUT1DIS3 IH (23:40)
[2019-04-17] MEDS ORDERED: LISI-334 PO (23:40)
[2019-04-17] MEDS ORDERED: DEXL60CA2 PO (23:40)
[2019-04-18 05:11] VITALS: BP 168/82
[2019-04-18 06:44] LABS: CALCIUM 8.4 mg/dL (8.5-10.1); CREATININE 1.3 mg/dL (0.6-1.0); GFR 42.7; POTASSIUM 3.2 mmol/L (3.5-5.1)
[2019-04-18] MEDS ORDERED: POTASSIUM CHLORIDE 20 MEQ TABLET.ER. PO ONE (07:30)
[2019-04-18 07:32] LABS: HEMATOCRIT 24.2 % (36.0-47.0); HEMOGLOBIN 7.8 g/dL (12.0-15.5); MEAN CORPUSCULAR HEMOGLOBIN 30 pg (25-35); MEAN CORPUSCULAR HGB CONC 32 g/dL (31-37); MEAN CORPUSCULAR VOLUME 95 fL (79-100); PLATELET COUNT 213 x10^3/uL (140-400); RED BLOOD COUNT 2.55 x10^6/uL (3.50-5.40); RED CELL DISTRIBUTION WIDTH 23.8 % (11.5-14.5); WHITE BLOOD COUNT 11.6 x10^3/uL (4.0-11.0)
[2019-04-18 09:21] LABS: % BASOS 2 % (0-3); % EOS 2 % (0-5); % LYMPHS 12 % (24-48); % METAS 1 % (0-0); % MONOS 14 % (0-10); % SEGS 69 % (35-66); PLATELET CLUMP PRESENT; PLT ESTIMATE ADEQUATE (ADEQUATE)
[2019-04-18 09:22] LABS: OVALOCYTES OCC; POIKILOCYTOSIS SLIGHT; POLYCHROMASIA MOD; TARGET CELLS OCC; TOXIC GRANULATION SLIGHT; TOXIC VACUOLATION SLIGHT
[2019-04-18 09:25] LABS: ANISOCYTOSIS PRESENT
[2019-04-18 11:09] VITALS: BP 181/95
[2019-04-18] MEDS: LISINOPRIL 20 MG TABLET PO SCH (11:13)
[2019-04-18] MEDS ORDERED: chlordiazePOXIDE HCL 25 MG CAPSULE PO PRN ×2 (13:30)
[2019-04-18] MEDS ORDERED: HALOPERIDOL LACT 5 MG/ML VIAL. IM PRN (13:30)
[2019-04-18] MEDS ORDERED: ALBUTEROL SULFATE 2.5 MG/3 ML NEBU. INH PRN (13:30)
[2019-04-18] MEDS ORDERED: cloNIDine HCL 0.1 MG TABLET PO PRN (13:30)
[2019-04-18] MEDS ORDERED: LORazepam 1 MG TABLET PO PRN ×2 (13:30)
[2019-04-18] MEDS ORDERED: diphenhydrAMINE 50 MG/ML VIAL IVP PRN (13:30)
[2019-04-18] MEDS ORDERED: NICOTINE 21MG PATCH. TD SCH (14:00)
--- NOTE | 2019-04-18 14:17 | HP ---
ADMIT DATE: HISTORY OF PRESENT ILLNESS: The patient is a 53-year-old female patient who came to the Emergency Room complaining of purulent drainage from her left neck for the past 5 days. The patient has a previous history of open reduction and internal fixation of her left jaw approximately a year ago. This was performed at . She has had previous abscess of the left jaw. She reports fever of up to 101 on . She has not seen anyone for this. She denies any difficulty swallowing. She reports the swelling has improved since the drainage has been going on. She was evaluated in the Emergency Room. Her lab work showed that she has leukocytosis with a white cell count of 14,[address] scan of the soft tissue of the neck, which basically showed that the parotids and the right sublingual glands are unremarkable. Absence of the left sublingual glands noted. Pharynx is symmetric and unremarkable. Epiglottis is normal. The wound is noted at the level inferior to the left parotid gland with associated sinus tract. The sinus tract along the inferomedial aspect of the left parotid gland along the lateral aspect of the left digastric muscle and there is an intermediate density heterogeneous structure measuring up to 3.2 cm anteroposteriorly x 1.8 cm transverse x 3.3 cm longitudinal and this is in the region of the surgical clips adjacent to the left mandible. There is no rim enhancing collection identified; however, plates and screws are noted involving the lateral aspect of the left mandible extending from the level of the neck to the mandibular midline. Nonunion fracture deformity at the level of the angle of mandible is noted. Pharynx symmetric. True and false vocal cords are unremarkable. Epiglottis is normal. No enlarged lymph nodes identified. Thyroid gland is unremarkable. Emphysematous involvement of the lung apices with moderate to severe C5-C6 interspace narrowing. Subtle reversal of cervical lordosis is noted. Neural foramina bony encroachment is marked at C5-C6. Therefore, the patient was admitted to the hospital and was started on IV vancomycin. PAST MEDICAL HISTORY: Significant for hypertension, chronic hepatitis C, chronic obstructive pulmonary disease, alcoholism as well as nicotine addiction. PAST SURGICAL HISTORY: Significant for left jaw fracture with multiple open reduction and internal fixation and abscess formation before, status post tonsillectomy, splenectomy, tubal ligation. ALLERGIES: She is allergic to PENICILLIN, BEES, and PINEAPPLES. FAMILY HISTORY: Unremarkable. SOCIAL HISTORY: She is single. Her children are grown up. She smokes half a pack a day and drinks a pint of vodka every other day. Does not use any drugs or marijuana. Currently on social security disability. REVIEW OF SYSTEMS: The patient denied any blurring of vision, cataract, glaucoma or macular degeneration. Denied any earache, tinnitus or sensorineural deafness. Denied any nosebleeds, stuffy nose or postnasal drip. Denied any sore throat, sore tongue, toothache, hoarseness of voice or difficulty swallowing. Denied any nausea, vomiting, diarrhea or constipation. Denied any hematemesis, melena or hematochezia. Denied any dysuria, frequency or hematuria. Denied any chest pain, shortness of breath, orthopnea, paroxysmal nocturnal dyspnea. Denied any cough, phlegm or hemoptysis. PHYSICAL EXAMINATION: GENERAL: On arrival to the Emergency Room, she looked well, slightly pale, but no jaundice, cyanosis, or thyromegaly. No jugular venous distension. No limb edema. VITAL SIGNS: Her heart rate was 87, blood pressure was 176/78, temperature was 98.2, respiratory rate was 16, and oxygen saturation was 100% on room air. HEAD, EYES, EARS, NOSE AND THROAT: Showed normocephalic. NECK: She has a sinus tract with purulent drainage from the left side of the neck. Neck itself is supple with no lymphadenopathy or thyromegaly. No jugular venous distension. No audible bruit. HEART: Showed normal first and second heart sounds with no gallop, rub or murmur. CHEST: Clear to auscultation. No crepitation or rhonchi. ABDOMEN: Distended, soft, nontender. NEUROLOGIC: She is awake, alert, responding appropriately. All cranial nerves intact. EXTREMITIES: She moves extremities without difficulty. She ambulates mostly without assistance or assistive devices. Occasionally uses a cane according to her. LABORATORY DATA: On arrival showed a white cell count of 14,000; hemoglobin 8.4; hematocrit 26.7; MCV 100; and platelet count 123,000 with normal manual differential. Her chemistry showed a serum sodium 133, potassium 3.6, chloride 101, bicarbonate 18, anion gap of 14, BUN 14, creatinine 1.4, estimated GFR was 39 mL per minute. Her glucose was 100, calcium was 8.3. Total bilirubin, AST, ALT, alkaline phosphatase slightly elevated. Her C-reactive protein was 14.9. Total protein was 8.8, albumin was 2.8. Her sedimentation rate was high at 110 mm per hour. ASSESSMENT: An abscess of the left side of the neck, status post traumatic fracture of left mandible, treated with open reduction and internal fixation about more than a year ago. She has anemia that is normochromic, normocytic; chronic hepatitis C; chronic kidney disease; hypertension. PLAN: To continue with IV antibiotic. We will monitor her lab work closely and we will consult ENT surgeon at [facility] given markedly elevated sed rate and C-reactive protein. SAMANTHA HAYES MD DR: KATHLEEN/nikita JOB#: [id number] / [id number]
[2019-04-18] MEDS ORDERED: MVI, ADULT NO.4 WITH VIT K 10 ML, THIAMINE INJ 100 MG, FOLIC ACID INJ 1 MG in IV NORMAL... IV SCH ×4 (14:30)
[2019-04-18] MEDS: FAMOTIDINE 20 MG TABLET PO SCH (14:55)
[2019-04-18] MEDS ORDERED: VANCOMYCIN PER PHARMACY MC PRN (15:00)
[2019-04-18 15:26] VITALS: BP 188/87
[2019-04-18] MEDS: ALBUTEROL SULFATE 2.5 MG/3 ML NEBU. NEB SCH ×2 (16:04→20:37)
[2019-04-18] MEDS ORDERED: VANCOMYCIN 1 GM in IV NORMAL SALINE 250ML 250 ML IV SCH (17:30)
[2019-04-18 20:02] VITALS: BP 170/83
[2019-04-18] MEDS: BUDESONIDE 0.5 MG/2 ML NEBU NEB SCH (20:36)
[2019-04-18] MEDS ORDERED: NON FORMULARY ITEM (Fluticasone/Salmeterol (Advair 250-50 Diskus) 1 PUFF) IH SCH (21:00)
[2019-04-18 23:02] VITALS: BP 164/89
--- NOTE | 2019-04-19 02:42 | PN ---
DATE: 04/18/2019 SUBJECTIVE: The patient is resting, slightly propped up, sleeping comfortably, in no apparent distress. On questioning her, denied any complaint, in particular denied any pain in her left neck. Denied any chills, rigors, or fever. Denied any difficulty swallowing. PHYSICAL EXAMINATION: GENERAL: When I examined her, she was pale, but no jaundice, cyanosis or thyromegaly. No jugular venous distention. No limb edema. VITAL SIGNS: Her heart rate was 95, blood pressure was 181/95, temperature was 98, respiratory rate was 20, and oxygen saturation was 96%. HEAD, EYES, EARS, NOSE AND THROAT: Showed normocephalic, atraumatic. She has an abscess with draining sinus in the left side of the neck. HEART: Showed normal first and second heart sounds with no gallop, rub or murmur. CHEST: Clear to auscultation. No crepitation or rhonchi. ABDOMEN: Distended, soft, nontender. NEUROLOGIC: She is awake, alert, responding appropriately. All cranial nerves intact. She moves her extremities without difficulty. She ambulates without assistance or assistive devices. Her intake was incompletely recorded. LABORATORY DATA: Her lab work this morning showed a serum sodium 139, potassium 3.2, chloride 106, bicarbonate was 19, anion gap of 14, BUN 13, creatinine 1.3, estimated GFR was 43 mL per minute. Her glucose was 101, calcium was 8.4. White cell count was 11,600, hemoglobin 7.8, hematocrit 24, MCV 95, and platelet count of 213,000. ASSESSMENT: Abscess in the left side of the neck with purulent drainage that has been going on for the last [address] scan of the soft tissue of the neck showed that there is a left-sided wound inferior to the level of the left parotid gland with associated sinus tract extends along the inferior deep margin of the left parotid gland. No rim-enhancing abscess collection identified. She has multiple other medical problems including hypertension, chronic hepatitis C, nicotine dependence and alcohol dependence. PLAN: To resume all her medications and start her on alcohol withdrawal protocol, and also offer a Nicoderm patch given that she is a heavy smoker. SAMANTHA HAYES MD DR: KATHLEEN/nikita JOB#: [id number] / [id number]
[2019-04-19] MEDS: ALBUTEROL SULFATE 2.5 MG/3 ML NEBU. NEB SCH ×2 (05:06→09:11)
[2019-04-19] MEDS: BUDESONIDE 0.5 MG/2 ML NEBU NEB SCH (05:06)
[2019-04-19 05:10] VITALS: BP 170/83
[2019-04-19 07:00] LABS: CALCIUM 8.4 mg/dL (8.5-10.1); CREATININE 1.1 mg/dL (0.6-1.0); GFR 51.8; POTASSIUM 3.5 mmol/L (3.5-5.1)
[2019-04-19] MEDS ORDERED: PANTOPRAZOLE 40 MG TABLET. PO SCH (07:30)
[2019-04-19] MEDS: FAMOTIDINE 20 MG TABLET PO SCH (08:50)
[2019-04-19] MEDS: LISINOPRIL 20 MG TABLET PO SCH (08:51)
[2019-04-19 10:15] VITALS: BP 121/70
[2019-04-19] MEDS ORDERED: DOXY100C2 PO (12:17)
[2019-04-19] MEDS ORDERED: LACTOBACILLUS RHAMNOSUS GG 1 CAPSULE. PO SCH (21:00)
--- NOTE | 2019-04-19 23:33 | DS ---
DATE OF DISCHARGE: 04/19/2019 HOSPITAL COURSE: The patient is a 53-year-old female patient who was admitted through the Emergency Room complaining of purulent drainage from the left side of her neck for the past 5 days. The patient has a previous history of open reduction and internal fixation of her left toe fracture approximately a year ago and it was done at [facility]. She had a previous abscess of the left toe. She reports fever up to 101 on . She has not seen anybody for this, and she denied any difficulty swallowing. She reports swelling has improved since the drainage has been going on. She was evaluated in the Emergency Room. Her lab work showed that she has leukocytosis with a white cell count of 14,000. Her CT scan of the soft tissue of the neck basically showed that the patient's parotid and right sublingual glands are unremarkable. Absence of the left sublingual glands noted. Pharynx is symmetric and unremarkable. The epiglottis was normal. The wound is noted at the level inferior to the left parotid gland with associated sinus tract, the sinus tract along the inferomedial aspect of the left parotid gland along the lateral aspect of the left digastric muscle. There is intermediate density, heterogenous structure measuring up to 3.2 cm anteroposteriorly, 1.8 cm transversely and 3.3 longitudinally. This is in the region of the surgical clips adjacent to the left mandible. There is no rim-enhancing collection identified; however, plates and screws are noted involving the lateral aspect of the left mandible extending from the level of the neck to the mandibular midline. There is also nonunion fracture deformity at the level of the angle of the mandible noted. Pharynx symmetric. True and false vocal cords are unremarkable. Epiglottis is normal. No enlarged lymph nodes identified. The patient was admitted and was started on IV vancomycin; however, the patient basically wanted to go home as she has huge charges to the hospital. Given that she has a collection in that area, I recommended that she can be discharged home on oral antibiotic and should make an appointment with her maxillofacial surgeon at [facility] as she probably has a collection that might require surgical intervention. PHYSICAL EXAMINATION: GENERAL: When I saw her today, she looked pale, but no jaundice, cyanosis, or thyromegaly. No jugular venous distension. No limb edema. VITAL SIGNS: Her heart rate was 82, blood pressure was 121/70, temperature was 97.5, respiratory rate was 30 and oxygen saturation was 97% on room air. HEAD, EYES, EARS, NOSE AND THROAT: Showed normocephalic, atraumatic. NECK: Supple with a sinus tract in the left side, draining some purulent drainage. It is much less today. There was no lymphadenopathy, no thyromegaly, no jugular venous distension, no audible bruit. HEART: Showed normal first and second heart sounds with no gallop, rub or murmur. CHEST: Clear to auscultation. No crepitation or rhonchi. ABDOMEN: Distended, soft, nontender. NEUROLOGIC: She was awake, alert, responding appropriately. All cranial nerves intact. EXTREMITIES: She moves extremities without difficulty. She ambulates without assistance or assistive devices. Her intake over the last 24 hours was 1600, no output was recorded. LABORATORY DATA: Her lab work showed a white cell count of 11,600, hemoglobin 7.8, hematocrit 24, MCV 95, and platelet count 213,000 with normal manual differential. Her serum sodium was 138, chloride 108, bicarbonate 17, anion gap of 13, BUN 12, creatinine 1.1, estimated GFR was 52 mL per minute. Her glucose was 94, calcium was 8.4. DISCHARGE MEDICATIONS: She was discharged home to continue on doxycycline 100 mg twice a day for 10 days, albuterol sulfate 1 puff every 6 hours, famotidine 20 mg twice a day. She is also on Dexilant 60 mg daily, Advair Diskus 250/50 and lisinopril 20 mg once a day. FINAL DISCHARGE DIAGNOSES: Abscess in the left side of the neck with sinus drainage. Other medical problems include hypertension, chronic hepatitis C, chronic obstructive pulmonary disease, alcoholism as well as nicotine addiction. The patient was given a prescription for doxycycline 100 mg twice a day for 10 days and advised to contact the maxillofacial surgeon at [facility], as she might require further surgical treatment. SAMANTHA HAYES MD DR: KATHLEEN/nikita JOB#: [id number] / [id number]
== END 2019-04-19 12:40 | disposition home or self-care (01) | DRG 603 ==
LOC: ER 16:03 → 1 SOUTH 20:08
PROVIDERS: ADMIT Internal Medicine; ATTEND Internal Medicine
PROC: 0J953ZZ Drainage of Left Neck Subcutaneous Tissue and Fascia, Percutaneous Approach (ICD-10-PCS; principal; 2019-04-17)
DX: L02.11 Cutaneous abscess of neck (principal); L03.211 Cellulitis of face; J44.9 Chronic obstructive pulmonary disease, unspecified; F32.9 Major depressive disorder, single episode, unspecified; F17.210 Nicotine dependence, cigarettes, uncomplicated; D64.9 Anemia, unspecified; N18.9 Chronic kidney disease, unspecified; I12.9 Hypertensive chronic kidney disease with stage 1 through stage 4 chronic kidney disease, or unspecified chronic kidney disease; B18.2 Chronic viral hepatitis C; F10.20 Alcohol dependence, uncomplicated; M40.50 Lordosis, unspecified, site unspecified; Z90.81 Acquired absence of spleen; Z90.721 Acquired absence of ovaries, unilateral; Z91.030 Bee allergy status; Z88.0 Allergy status to penicillin; Z91.018 Allergy to other foods
CPT/HCPCS: 36415; 70491; 80048; 80053; 85007; 85025; 85651; 86140; 87040; 87641; 94640; 96365; 96368; J2060; J3370; J3490; J7050; J7613; J7626; Q9967; 99285-25; J7030

== ENCOUNTER 2019-09-28 13:43 | Emergency (ER) | payer SELFPAY ==
[~2019-09-28] VITALS: Ht 154.9 cm; Wt 49.9 kg
[~2019-09-28 13:43] MED LIST changes: +DEXL60CA2 PO; +DOXY100C2 PO; +FLUT1DIS3 IH; -MAGN400T3 PO; +MAGN400T5 PO
[2019-09-28] MEDS ORDERED: CEPH-264 PO (14:09)
--- NOTE | 2019-09-28 14:09 | PHYS DOC ---
Past History Past Medical History: Abscess, Alcoholism, Asthma, COPD, Depression, GERD, Hypertension Past Surgical History: Oophorectomy, Spleenectomy, Tonsillectomy, Other Additional Past Surgical Histo: left jawORIF Smoking: Less than 1pk/day, Cigar Alcohol Use: Heavy Drug Use: Marijuana Adult General Chief Complaint Chief Complaint: LACERATION/AVULSION HPI HPI Patient is a 54-year-old female who presents with complaint of small wound to her face. Patient states that she was brushing her hair and accidentally punched a hole in her face with one of the spines from the brush. Patient states that wound has been present for the last 4 hours and has not stopped. Patient denies any blood thinners.[] Review of Systems Review of Systems Constitutional: Denies fever or chills [] Respiratory: Denies cough or shortness of breath [] Cardiovascular: No additional information not addressed in HPI [] Integument: Small laceration face[] Neurologic: Denies headache, focal weakness or sensory changes [] Allergies Allergies Allergies Coded Allergies Type Severity Reaction Last Updated Verified Penicillins Allergy Intermediate Rash 04/19/18 Yes I S O L A T I O N *CONTACT* Allergy Unknown 04/19/18 Yes Physical Exam Physical Exam Constitutional: Well developed, well nourished, no acute distress, non-toxic appearance. [] HENT: Normocephalic, with small punctate wound to the right cheek. No obvious foreign body noted on exam. [] Cardiovascular:Heart rate regular rhythm, no murmur [] Lungs & Thorax: Bilateral breath sounds clear to auscultation [] Skin: There is a small punctate wound/laceration measuring approximately 1 mm in length. [] Neurologic: Alert and oriented X 3, no focal deficits noted. [] Current Patient Data Vital Signs Vital Signs Date Time Temp Pulse Resp B/P (MAP) Pulse Ox O2 Delivery O2 Flow Rate FiO2 09/28/19 13:45 98.3 97 18 184/92 (122) 100 Room Air EKG EKG [] Radiology/Procedures Radiology/Procedures [] Course & Med Decision Making Course & Med Decision Making Pertinent Labs and Imaging studies reviewed. (See chart for details) Laceration Repair by me: Anesthesia: 1% lidocaine locally Location: Right cheek Tendon/Joint/Nerves: No injury Foreign body: None detected after copious irrigation and exploration Technique: 1 simple suture placed for wound closure and hemostasis. Complexity: No subcutaneous sutures/mucosal repair/edge excision Post Closure Length: 0.1 cm Patient's bleeding was easily controlled in the department and there is no indication of anemia. No evidence of compartment syndrome, neurologic injury, vascular injury, open joint, tendon laceration, or foreign body. Patient is appropriate for outpatient follow up. 48 hour wound check. Scar minimization instructions given. Dragon Disclaimer Dragon Disclaimer This electronic medical record was generated, in whole or in part, using a voice recognition dictation system. Departure Departure: Impression: Primary Impression: Facial laceration Disposition: HOME, SELF-CARE Condition: STABLE Referrals: PCP,NO (PCP) Patient Instructions: Facial Laceration Additional Instructions: Return for suture removal in 3-5 days. Scripts Cephalexin (KEFLEX) 500 Mg Capsule 500 MG PO BID for prevent infection, #10 TAB Prov: BOLA BURGESS Jr. DO 09/28/19 Problem Qualifiers Primary Impression: Facial laceration Encounter type: initial encounter Qualified Codes: S01.81XA - Laceration without foreign body of other part of head, initial encounter BOLA BURGESS Jr. DO Sep 28, 2019 14:09
== END 2019-09-28 14:18 | disposition home or self-care (01) ==
LOC: ER 13:43
DX: S01.411A Laceration without foreign body of right cheek and temporomandibular area, initial encounter (principal); J44.9 Chronic obstructive pulmonary disease, unspecified; K21.9 Gastro-esophageal reflux disease without esophagitis; I10 Essential (primary) hypertension; F10.20 Alcohol dependence, uncomplicated; F17.210 Nicotine dependence, cigarettes, uncomplicated; Z88.0 Allergy status to penicillin; Z91.041 Radiographic dye allergy status; Y90.9 Presence of alcohol in blood, level not specified; W22.8XXA Striking against or struck by other objects, initial encounter; Y93.89 Activity, other specified; Y92.89 Other specified places as the place of occurrence of the external cause; Y99.8 Other external cause status
CPT/HCPCS: 12011; 99283

== ENCOUNTER 2019-10-01 07:58 | Emergency (ER) | payer SELFPAY ==
[~2019-10-01] VITALS: Ht 154.9 cm; Wt 49.9 kg
[~2019-10-01 07:58] MED LIST changes: +CEPH-264 PO
[2019-10-01 08:08] VITALS: BP 144/72
[2019-10-01] MEDS ORDERED: KETOROLAC 15 MG/ML VIAL. IVP ONE (08:30)
[2019-10-01] MEDS ORDERED: MVI, ADULT NO.4 WITH VIT K 10 ML, FOLIC ACID INJ 1 MG, THIAMINE INJ 100 MG in IV RINGER... IV ONE ×4 (08:30)
[2019-10-01] MEDS ORDERED: ONDANSETRON PF 4 MG/2 ML VIAL. IVP ONE (08:30)
--- NOTE | 2019-10-01 08:37 | PHYS DOC ---
Past History Past Medical History: Abscess, Alcoholism, Asthma, COPD, Depression, GERD, Hypertension Past Surgical History: Oophorectomy, Spleenectomy, Tonsillectomy, Other Additional Past Surgical Histo: left jawORIF Smoking: Cigarettes, Less than 1pk/day, Cigar Alcohol Use: Heavy Drug Use: Marijuana Adult General Chief Complaint Chief Complaint: MULTIPLE COMPLAINTS HPI HPI Patient is a 54-year-old female who presents with complaints of bilateral hand swelling and pain and posterior leg pain. She reports that she has never had anything like this before. She said that this began 3-4 days ago and has progressively gotten worse. The pain is a 10/10. She said that she is not able to to move her hands and that "everything makes the pain worse". She denies any trauma or falls. She says that her hands are tingling and feel numb. She also states that her legs feel very weak and that she has been having difficulty walking. She reports nausea with one episode of vomiting early this morning and 3 episodes of diarrhea since midnight. She also reports sore throat and cough that is productive of white and green sputum. She denies fevers. She has no history of DVT or pulmonary embolus. Review of Systems Review of Systems Constitutional: Denies fever or chills Eyes: Denies redness or eye pain HENT: Reports sore throat, Denies nasal congestion Respiratory: Reports cough and shortness of breath Cardiovascular: Denies chest pain or palpitations GI: Reports nausea, vomiting, and diarrhea, Denies abdominal pain : Denies dysuria or hematuria Musculoskeletal: Reports hand, wrist, and posterior leg pain, Denies back pain Integument: Denies rash or skin lesions Neurologic: Denies headache, focal weakness or sensory changes Complete systems were reviewed and found to be within normal limits, except as documented in this note. Family History Family History No family history of DVT or PE. Current Medications Current Medications Current Medications Medications (Trade) Dose Ordered Sig/Cesilia Start Time Stop Time Status Last Admin Dose Admin Ketorolac Tromethamine (Toradol 15mg Vial) 15 mg 1X ONCE 10/01/19 08:30 10/01/19 08:31 UNV Multivitamins/ Minerals 10 ml/ Folic Acid 1 mg/ Thiamine HCl 100 mg/Lactated Ringer's 1,011.3 ml @ 1,011.3 mls/hr 1X ONCE 10/01/19 08:30 10/01/19 09:29 UNV Ondansetron HCl (Zofran) 4 mg 1X ONCE 10/01/19 08:30 10/01/19 08:31 UNV Allergies Allergies Allergies Coded Allergies Type Severity Reaction Last Updated Verified Penicillins Allergy Intermediate Rash 04/19/18 Yes I S O L A T I O N *CONTACT* Allergy Unknown 04/19/18 Yes Physical Exam Physical Exam Constitutional: Well developed, well nourished, no acute distress, non-toxic appearance, agitated HENT: Normocephalic, atraumatic, oropharynx moist, right cheek abrasion covered by dressing Eyes: EOMI, conjunctiva normal, no discharge Neck: Normal range of motion, no tenderness, supple Cardiovascular: Tachycardic, regular rhythm Lungs & Thorax: Bilateral breath sounds clear to auscultation, no wheezing Abdomen: Soft, no tenderness, midline abdominal hernia Skin: Warm, dry, no erythema, no rash Extremities: Tenderness of bilateral wrist and hands, passive ROM of b/l wrist and hands intact, active ROM is diminished, mild edema of bilateral palms and fingers; tenderness of posterior thighs and calves, no edema, ROM intact Neurologic: Alert and oriented X 3, normal motor function, normal sensory function, no focal deficits noted Psychologic: Affect agitated, judgment normal Current Patient Data Vital Signs Vital Signs Date Time Temp Pulse Resp B/P (MAP) Pulse Ox O2 Delivery O2 Flow Rate FiO2 10/01/19 08:16 98.2 10/01/19 08:08 128 26 144/72 (96) 98 EKG EKG @0830 EKG performed and showed sinus tachycardia with heart rate of [address] segment changes noted. Radiology/Procedures Radiology/Procedures UPPER EXT VENOUS BILATERAL UPPER EXT VENOUS BILATERAL History: Hand swelling, recent PICC of the right arm Comparison: None. Findings: Multiple grayscale, color, duplex spectral analysis waveform images of the bilateral upper extremity veins are submitted. Interrogated left upper extremity veins are patent, no thrombus demonstrated. On the right, there is abnormal, occlusive echogenicity in the cephalic vein from the level of the antecubital region to the wrist. Remainder of the interrogated right upper extremity veins are patent with normal color flow and phasicity. Impression: 1. No deep venous thrombus is limited on either side, although occlusive thrombus in the right cephalic vein at level of the antecubital region to the wrist. Results were discussed with DENIZ RAMIREZ at 10/01/2019 10:29 AM. Electronically signed by: Jeremiah Enriquez MD (10/01/2019 10:29 AM) [id number] CT HEAD AND MAXILLOFACIAL WO Examination: CT HEAD AND MAXILLOFACIAL WO History: Weakness, infection, right cheek wound Comparison/Correlation: 04/19/2018 CT maxillofacial without contrast and CT head without contrast Findings: Axial images of the head and maxillofacial structures were obtained without contrast. Sagittal and coronal reformatted images of the maxillofacial structures were provided. Motion limits evaluation at the lower facial and mandibular level despite repeat scanning at the time of the patient's visit. Mild atrophy is present. No intracranial hemorrhage, midline shift, mass effect. Parotid glands are unremarkable. Right submandibular gland is normal. The left submandibular gland is not identified. There is a fluid collection anterior to the expected site of the left submandibular gland measuring 3.4 cm anteroposterior by 1.6 cm transverse. It is well-circumscribed. Surgical clips are present about it. This does not have surrounding inflammatory change. No edema or loculated collection identified about the right cheek region. Nonenlarged level 2A lymph nodes are present. Plate and associated screws involve the left mandible extending from the level just below the mandibular neck to the anterior midline of the lower mandible. Fracture lucency just distal to the angle of the mandible is present. It is present just posterior to the left lower third molar level. Dental caries noted. Orbits are unremarkable. Impression: Atrophy. No intracranial hemorrhage. Fluid collection probably representing postoperative seroma or old hematoma involving the soft tissues anterior to the site of resection of the left submandibular gland. No inflammatory findings. No radiopaque foreign bodies involving soft tissues of the motion limited assessment. No suspicious findings involving the right cheek region. PQRS Compliance Statement: One or more of the following individualized dose reduction techniques were utilized for this examination: 1. Automated exposure control 2. Adjustment of the mA and/or kV according to patient size 3. Use of iterative reconstruction technique Electronically signed by: Pawan Delgado MD (10/01/2019 11:34 AM) [id number] CT CHEST ABDOMEN PELVIS WO Examination: CT CHEST ABDOMEN PELVIS WO History: Cough, upper abdominal pain and elevated bilirubin Comparison/Correlation: None Findings: Axial images of the chest, abdomen, and post routine without contrast. Sagittal and coronal reformatted images were provided. Centrilobular emphysematous lung hirsch is present. There is no pulmonary nodule or mass. Minimal linear scarring or linear atelectasis at the anterior basilar lingular region is present. Ground glass infiltrate with posterior left lower lung field base aspect is present. No pleural effusion. No pericardial effusion. Marked calcification involving the proximal left anterior descending coronary artery is noted. Marked calcific involvement of the right coronary artery also seen. Circumflex coronary arterial calcification of a slightly lesser extent is also present. No enlarged thoracic lymph nodes. Small amount of herniated fat through the esophageal hiatus noted. Fatty infiltration of liver noted. Stomach is distended with fluid. Small epigastric upper abdominal level ventral hernia defect containing omental fat. Upper abdominal midline ventral wall hernia defect in particular is seen measuring 3 cm transverse with omental fat within it. There is a 2.7 cm diameter calculus within the gallbladder. Subtle nodular contour of the liver is present. Absence of the spleen is noted. Pancreas is unremarkable. Adrenal glands are normal. No hydronephrosis or nephrolithiasis. No collecting system distention. No ascites or pelvic free fluid. Uterus is unremarkable. No inflammatory change about the cecum. Severe L5-S1 disc space narrowing is present. Bony encroachment on the neural foramina bilaterally is present. Impression: Marked coronary arterial calcification is present. Correlate for possible underlying coronary artery disease. Nodular contour of the liver compatible with hepatic cirrhosis or other fibrotic process. Marked fatty infiltration of the liver. Cholelithiasis. Ventral abdominal wall hernias. No biliary dilatation. Small groundglass infiltrate at the posterior left basilar region. Interval follow-up to assess resolution in 3-[address] is recommended. PQRS Compliance Statement: One or more of the following individualized dose reduction techniques were utilized for this examination: 1. Automated exposure control 2. Adjustment of the mA and/or kV according to patient size 3. Use of iterative reconstruction technique Electronically signed by: Pawan Delgado MD (10/01/2019 11:46 AM) [id number] CHEST AP ONLY CHEST AP ONLY Clinical indications: Right IJ central line placement. COMPARISON: January 10, 2019 chest x-ray. Findings: Right IJ central line has been placed. The tip is seen within the mid SVC above the level of the right atrium. No acute lung infiltrate or pleural effusion or pulmonary edema or lung mass or pneumothorax is seen. The heart size, pulmonary vasculature, mediastinum and both rosalind are unremarkable. Impression: No acute radiographic abnormality is seen. Electronically signed by: Pan Archer MD (10/01/2019 1:59 PM) [id number] VASCULAR ACCESS SONO GUIDANCE INDICATION: Central line placement COMPARISON: None. FINDINGS: Ultrasound was used by the clinical service to assist with central line placement. 2 images were saved which demonstrates the jugular vein and carotid artery. No central line or needle is seen. IMPRESSION: * Ultrasound was utilized by the clinical service to assist with central line placement. Electronically signed by: Rolando Hyatt MD (10/01/2019 2:34 PM) [facility] [place] Decision Making Course & Med Decision Making Pertinent Labs and Imaging studies reviewed. (See chart for details) Patient is a 54-year-old female who presented to the ED with complaints of bilateral hand swelling and pain and posterior leg pain that began 3-4 days ago and has progressively worsened. She denies any trauma or falls. Ultrasound performed of bilateral upper extremities and showed no DVT, howevere there was occlusive thrombus in the right cephalic vein at level of the antecubital region to the wrist. She was given Lovenox She was found to have leukocytosis of 21.6. Lactic acid of 4.7. After fluids, lactic acid was 3.8. Blood cultures were obtained and empiric antibiotics were started. CT chest/abd/pelvis was performed and showed findings of hepatic cirrhosis, cholelithiasis with no biliary dilatation, and small groundglass infiltrate at the posterior left basilar region. CT of head/maxillofacial performed and showed no intracranial hemorrhage and possible postoperative seroma or hematoma of left submandibular gland. Labs also showed multiple electrolyte abnormalities including hypomagnesemia, hypokalemia, and hyponatremia. Banana bag was given. She also had Cr of 2.3 which is more elevated than it has been in the past (April 2019 Cr of 1.4). Ammonia was 47. Lactulose given. Urine tox positive for methamphetamines. UA was neg for nitrites, had trace leuk esterase, and 11-20 WBCs- more likely contamination due to squamous cells. EKG performed and showed sinus tachycardia with heart rate of 125 bpm with no acute ST segment changes. Right internal jugular vein central line placed and placement confirmed with CXR. Patient requiring admission for further evaluation and treatment. Discussed with Dr. Ugalde (hospitalist) who is in agreement with admission, but requests transfer for admission to [facility] for higher level of care. Discussed findings and plan with patient, who acknowledges understanding and agreement. Dragon Disclaimer Dragon Disclaimer This electronic medical record was generated, in whole or in part, using a voice recognition dictation system. Departure Departure: Impression: Primary Impression: Septic shock Additional Impressions: Superficial thrombophlebitis Leukocytosis Hypomagnesemia Acute on chronic renal insufficiency Hypokalemia Hyperammonemia Disposition: 05 TRANSFER OTHER ([facility]) Admitting Physician: Frederic Ugalde Condition: GUARDED Referrals: PCP,NO (PCP) Central Line Central Line : Central Line Lumen: triple Central Line Procedure: sterile drapes applied, sterile dressing applied Central Line Postion: internal jugular (R) Anesthesia: Lidocaine (1%) cc's of anesthesia: 3 Complications: none Central Line Post Position: sutured, good blood return, position confirmed w/ CXR Progress Central Line Placement Written consent obtained. Time out performed. Hand hygiene utilized. Sterile attire doned. Area cleaned with ChloraPrep. Sterile drape applied. Anesthesia obtained via a 25-gauge hypodermic needle with 2.5 mL's of lidocaine 1% without epinephrine. Bedside ultrasound guidance utilized. Right sided internal jugular vein triple central line placement performed. Central line held in place by sutures x 3. Patient tolerated procedure well and without difficulty. OpSite placed over central line. Sepsis Assessment Date and Time of Assessment Date: Oct 01, 2019 Time: 14:00 Fluid Challenge: Is the fluid challenge complet: No IBW Target Volume Used: No BMI > 30: No Vital Signs Vital Signs Vital Signs Date Time Temp Pulse Resp B/P (MAP) Pulse Ox O2 Delivery O2 Flow Rate FiO2 10/01/19 08:16 98.2 10/01/19 08:08 128 26 144/72 (96) 98 Temperature Source: Oral Respirations Respiratory Effort: Normal, Non-Labored Respiratory Pattern: Normal Cardiovascular Pulse Rhythm: Irregular (tachycardia) Heart: No rubs, clicks or gallop, S1 and S2 normal Lung Sounds Breath Sounds: Clear Capillary Refill Capillary Refill: Rt Hand < 3 seconds Peripheral Pulse Pulse Location: Radial Pulse Strength: Normal (2+) Pulse Assessment Method: Palpation Integumentary Skin: Warm, Dry, No Rashes Skin Moisture: Dry Skin Turgor: Normal Skin Color: warm, dry Fingernail Color: WNL Critical Care Time Critical care time was 45 minutes which includes time at bedside, spent in discussion of patient's care with specialists and/or family members, with interpretation of laboratory and/or radiological studies and is exclusive of procedures. Problem Qualifiers Additional Impressions: Superficial thrombophlebitis Superficial thrombophlebitis-Involved body area: upper extremity Laterality: right Qualified Codes: I80.8 - Phlebitis and thrombophlebitis of other sites Leukocytosis Leukocytosis type: unspecified Qualified Codes: D72.829 - Elevated white blood cell count, unspecified DENIZ RAMIREZ DO Oct 01, 2019 08:37
[2019-10-01 09:03] LABS: BASO # 0.1 x10^3/uL (0.0-0.2); BASO % 0 % (0-3); EOS # 0.2 x10^3/uL (0.0-0.7); EOS % 1 % (0-3); HEMATOCRIT 25.8 % (36.0-47.0); HEMOGLOBIN 8.8 g/dL (12.0-15.5); LYMPH # 0.4 x10^3/uL (1.0-4.8); LYMPH % 2 % (24-48); MEAN CORPUSCULAR HEMOGLOBIN 39 pg (25-35); MEAN CORPUSCULAR HGB CONC 34 g/dL (31-37); MEAN CORPUSCULAR VOLUME 115 fL (79-100); MONO # 0.9 x10^3/uL (0.0-1.1); MONO % 4 % (0-9); NEUT % 93 % (31-73); PLATELET COUNT 131 x10^3/uL (140-400); RED BLOOD COUNT 2.25 x10^6/uL (3.50-5.40); RED CELL DISTRIBUTION WIDTH 14.4 % (11.5-14.5); WHITE BLOOD COUNT 21.6 x10^3/uL (4.0-11.0)
[2019-10-01] MEDS ORDERED: MAGNESIUM SULFATE 2GM 50 ML IV ONE (09:15)
[2019-10-01 09:20] LABS: ALBUMIN 2.1 g/dL (3.4-5.0); ALBUMIN/GLOBULIN RATIO 0.4 (1.0-1.7); CALCIUM 8.1 mg/dL (8.5-10.1); CREATININE 2.3 mg/dL (0.6-1.0); TOTAL PROTEIN 7.4 g/dL (6.4-8.2)
[2019-10-01] MEDS ORDERED: IV NORMAL SALINE 1,000ML 1,000 ML IV ONE ×2 (09:45→14:15)
[2019-10-01 09:49] LABS: MAGNESIUM 0.8 mg/dL (1.8-2.4)
[2019-10-01] MEDS ORDERED: POTASSIUM CHLORIDE 20 MEQ TABLET.ER. PO ONE (10:00)
[2019-10-01] MEDS ORDERED: VANCOMYCIN 1.25 GM in IV NORMAL SALINE 250ML 250 ML IV ONE ×2 (10:15→15:00)
[2019-10-01] MEDS ORDERED: ENOXAPARIN ** NOTE DOSE ** SYRINGE SQ ONE (10:30)
[2019-10-01] MEDS ORDERED: AZTREONAM 2 GM in IV NORMAL SALINE 100ML 100 ML IV ONE (10:30)
--- NOTE | 2019-10-01 10:32 | RAD ---
UPPER EXT VENOUS BILATERAL History: Hand swelling, recent PICC of the right arm Comparison: None. Findings: Multiple grayscale, color, duplex spectral analysis waveform images of the bilateral upper extremity veins are submitted. Interrogated left upper extremity veins are patent, no thrombus demonstrated. On the right, there is abnormal, occlusive echogenicity in the cephalic vein from the level of the antecubital region to the wrist. Remainder of the interrogated right upper extremity veins are patent with normal color flow and phasicity. Impression: 1. No deep venous thrombus is limited on either side, although occlusive thrombus in the right cephalic vein at level of the antecubital region to the wrist. Results were discussed with DENIZ RAMIREZ at 10/01/2019 10:29 AM. Electronically signed by: Jeremiah Enriquez MD (10/01/2019 10:29 AM) [email or web address]
[2019-10-01] MEDS ORDERED: VANCOMYCIN 1 GM VIAL. ONE (10:40)
[2019-10-01] MEDS ORDERED: IV NORMAL SALINE 250ML 250 ML ONE (10:40)
[2019-10-01 11:03] LABS: % BANDS 7 % (0-9); % EOS 1 % (0-5); % LYMPHS 2 % (24-48); % MONOS 4 % (0-10); % SEGS 86 % (35-66); NUCLEATED RBC 1; PLT ESTIMATE DECREASED (ADEQUATE); POLYCHROMASIA SLIGHT; TOXIC GRANULATION MOD
[2019-10-01 11:04] LABS: TOXIC VACUOLATION SLIGHT
--- NOTE | 2019-10-01 11:37 | RAD ---
Examination: CT HEAD AND MAXILLOFACIAL WO History: Weakness, infection, right cheek wound Comparison/Correlation: 04/19/2018 CT maxillofacial without contrast and CT head without contrast Findings: Axial images of the head and maxillofacial structures were obtained without contrast. Sagittal and coronal reformatted images of the maxillofacial structures were provided. Motion limits evaluation at the lower facial and mandibular level despite repeat scanning at the time of the patient's visit. Mild atrophy is present. No intracranial hemorrhage, midline shift, mass effect. Parotid glands are unremarkable. Right submandibular gland is normal. The left submandibular gland is not identified. There is a fluid collection anterior to the expected site of the left submandibular gland measuring 3.4 cm anteroposterior by 1.6 cm transverse. It is well-circumscribed. Surgical clips are present about it. This does not have surrounding inflammatory change. No edema or loculated collection identified about the right cheek region. Nonenlarged level 2A lymph nodes are present. Plate and associated screws involve the left mandible extending from the level just below the mandibular neck to the anterior midline of the lower mandible. Fracture lucency just distal to the angle of the mandible is present. It is present just posterior to the left lower third molar level. Dental caries noted. Orbits are unremarkable. Impression: Atrophy. No intracranial hemorrhage. Fluid collection probably representing postoperative seroma or old hematoma involving the soft tissues anterior to the site of resection of the left submandibular gland. No inflammatory findings. No radiopaque foreign bodies involving soft tissues of the motion limited assessment. No suspicious findings involving the right cheek region. PQRS Compliance Statement: One or more of the following individualized dose reduction techniques were utilized for this examination: 1. Automated exposure control 2. Adjustment of the mA and/or kV according to patient size 3. Use of iterative reconstruction technique Electronically signed by: Pawan Delgado MD (10/01/2019 11:34 AM) [id number]
--- NOTE | 2019-10-01 11:49 | RAD ---
Examination: CT CHEST ABDOMEN PELVIS WO History: Cough, upper abdominal pain and elevated bilirubin Comparison/Correlation: None Findings: Axial images of the chest, abdomen, and post routine without contrast. Sagittal and coronal reformatted images were provided. Centrilobular emphysematous lung hirsch is present. There is no pulmonary nodule or mass. Minimal linear scarring or linear atelectasis at the anterior basilar lingular region is present. Ground glass infiltrate with posterior left lower lung field base aspect is present. No pleural effusion. No pericardial effusion. Marked calcification involving the proximal left anterior descending coronary artery is noted. Marked calcific involvement of the right coronary artery also seen. Circumflex coronary arterial calcification of a slightly lesser extent is also present. No enlarged thoracic lymph nodes. Small amount of herniated fat through the esophageal hiatus noted. Fatty infiltration of liver noted. Stomach is distended with fluid. Small epigastric upper abdominal level ventral hernia defect containing omental fat. Upper abdominal midline ventral wall hernia defect in particular is seen measuring 3 cm transverse with omental fat within it. There is a 2.7 cm diameter calculus within the gallbladder. Subtle nodular contour of the liver is present. Absence of the spleen is noted. Pancreas is unremarkable. Adrenal glands are normal. No hydronephrosis or nephrolithiasis. No collecting system distention. No ascites or pelvic free fluid. Uterus is unremarkable. No inflammatory change about the cecum. Severe L5-S1 disc space narrowing is present. Bony encroachment on the neural foramina bilaterally is present. Impression: Marked coronary arterial calcification is present. Correlate for possible underlying coronary artery disease. Nodular contour of the liver compatible with hepatic cirrhosis or other fibrotic process. Marked fatty infiltration of the liver. Cholelithiasis. Ventral abdominal wall hernias. No biliary dilatation. Small groundglass infiltrate at the posterior left basilar region. Interval follow-up to assess resolution in 3-[address] is recommended. PQRS Compliance Statement: One or more of the following individualized dose reduction techniques were utilized for this examination: 1. Automated exposure control 2. Adjustment of the mA and/or kV according to patient size 3. Use of iterative reconstruction technique Electronically signed by: Pawan Delgado MD (10/01/2019 11:46 AM) [id number]
--- NOTE | 2019-10-01 12:34 | EKG ---
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
[2019-10-01 12:48] LABS: BACTERIA,URINE FEW /HPF (0-FEW); BILIRUBIN,URINE NEG (NEG); CLARITY,URINE HAZY; COLOR,URINE AMBER; GLUCOSE,URINE NEG (NEG); NITRITE,URINE NEG (NEG); SQUAMOUS EPITHELIAL CELL,UR MANY /LPF
[2019-10-01 12:50] LABS: BARBITURATES NEG (NEG); BENZODIAZEPINES NEG (NEG); CANNABINOIDS NEG (NEG); COCAINE NEG (NEG); METHADONE NEG (NEG); OPIATES NEG (NEG); PHENCYCLIDINE NEG (NEG)
[2019-10-01 12:53] LABS: AMPHETAMINE/METHAMPHETAMINE POS (NEG)
--- NOTE | 2019-10-01 14:02 | RAD ---
CHEST AP ONLY Clinical indications: Right IJ central line placement. COMPARISON: January 10, 2019 chest x-ray. Findings: Right IJ central line has been placed. The tip is seen within the mid SVC above the level of the right atrium. No acute lung infiltrate or pleural effusion or pulmonary edema or lung mass or pneumothorax is seen. The heart size, pulmonary vasculature, mediastinum and both rosalind are unremarkable. Impression: No acute radiographic abnormality is seen. Electronically signed by: Pan Archer MD (10/01/2019 1:59 PM) [id number]
[2019-10-01] MEDS ORDERED: VANCOMYCIN PER PHARMACY MC PRN (14:30)
--- NOTE | 2019-10-01 14:37 | RAD ---
INDICATION: Central line placement COMPARISON: None. FINDINGS: Ultrasound was used by the clinical service to assist with central line placement. 2 images were saved which demonstrates the jugular vein and carotid artery. No central line or needle is seen. IMPRESSION: * Ultrasound was utilized by the clinical service to assist with central line placement. Electronically signed by: Rolando Hyatt MD (10/01/2019 2:34 PM) [facility] [place]
[2019-10-01] MEDS ORDERED: LACTULOSE 20 GM/30 ML SOLUTION. PO ONE (16:45)
[2019-10-01 18:38] LABS: INFLUENZA A PATIENT NEGATIVE (NEGATIVE); INFLUENZA B PATIENT NEGATIVE (NEGATIVE)
[2019-10-03] MEDS ORDERED: VANCOMYCIN 750 MG in IV NORMAL SALINE 250ML 250 ML IV SCH (10:00)
== END 2019-10-01 20:42 | disposition short-term general hospital (02) ==
LOC: ER 07:58
DX: R65.21 Severe sepsis with septic shock (principal); I12.9 Hypertensive chronic kidney disease with stage 1 through stage 4 chronic kidney disease, or unspecified chronic kidney disease; N18.9 Chronic kidney disease, unspecified; I80.8 Phlebitis and thrombophlebitis of other sites; D72.829 Elevated white blood cell count, unspecified; E83.42 Hypomagnesemia; E87.6 Hypokalemia; E72.20 Disorder of urea cycle metabolism, unspecified; F10.20 Alcohol dependence, uncomplicated; Y90.0 Blood alcohol level of less than 20 mg/100 ml; J44.9 Chronic obstructive pulmonary disease, unspecified; K21.9 Gastro-esophageal reflux disease without esophagitis; F17.210 Nicotine dependence, cigarettes, uncomplicated; Z88.0 Allergy status to penicillin; Z91.041 Radiographic dye allergy status
CPT/HCPCS: 36415; 36556; 70450; 70486; 71045; 71250; 74176; 80053; 80307; 81001; 82140; 82553; 83605; 83690; 83735; 84484; 85007; 85025; 85610; 85730; 87040; 87086; 87205; 87804; 93005; 93970; 96361; 96365; 96366; 96367; 96368; 96372; 96375; 96376; 99291; G0480; J1650; J1885; J2060; J2405; J3010; J3370; J3475; J3490; J7050; J7120; J7030